=== PATIENT | female | born 1995 | race Two or more races ===

== ENCOUNTER 2024-08-21 14:21 | Outpatient (AMB) | payer MEDICAID, SELFPAY ==
[2024-08-21 14:33] VITALS: BP 123/72; PULSE 78; RESP 18; TEMP 36.2; O2SAT 96
--- NOTE | 2024-08-21 14:33 | OBCLNT_ITS ---
Vital Signs 08/21/24 14:33 Weight 80.796 kg Weight Measurement Method Standing Scale BP 123/72 Blood Pressure Source Automatic Cuff Blood Pressure Location Left Upper Arm Position Sitting Respiration 18 Pulse 78 Pulse Source Monitor Temp 97.2 F Temp Source Oral Pulse Oximetry (%) 96 Oxygen Delivery Method Room Air Allergies/Home Meds Allergies & Medications Allergies ampicillin Allergy (Verified 08/21/24 14:40) Rash Medication Reconciliation ibuprofen 800 mg tablet 800 mg PO Q6H PRN pain #30 tabs 03/26/23 [Rx Confirmed 08/21/24] ciprofloxacin HCl 500 mg tablet (Cipro) 500 mg PO BID #14 tabs 07/21/23 [Rx Confirmed 08/21/24] ibuprofen 800 mg tablet 800 mg PO TID PRN pain #30 tabs 07/21/23 [Rx Confirmed 08/21/24] erythromycin 5 mg/gram (0.5 %) eye ointment 0.5 inch ophthalmic (eye) QID #3.5 grams 01/01/24 [Rx Confirmed 08/21/24] Intake Visit Data Collection New Patient or Established: Established Patient (seen at [facility] within 3 years) Reason for Visit:: ob initial Seen by Clinical Staff ONLY (RN/MA): No Environmental Intern Required: No Do You Feel Safe at Home: Yes Authorities Contacted: N/A PCP or OBGYN visit in last 3 months: Yes Date of Last PCP or OBGYN visit: 08/15/24 Hx Now: Yes Are you currently on any form of Control: No Last menstrual period: 07/10/24 Pain Present Currently: No Pain Scale Used: Rodríguez-Starkey/Numerical Pain scale:: 0 Smoking Status Smoking Status: Never smoker Questionnaires Covid-19 Vaccine Questionnaire Has patient been vacinated for Covid-19 Have you been vacinated for Covid-19: Yes PHQ-9 PHQ-2 Over the last 2 weeks, how often have you been bothered by any of the following problems? 1. Little interest or pleasure in doing things: not at all 2. Feeling down, depressed, or hopeless: not at all Total score: 0 PHQ-9 3. Trouble falling or staying asleep, or sleeping too much: Not at all 4. Feeling tired or having little energy: Not at all 5. Poor appetite or overeating: Not at all 6. Feeling bad about yourself - or that you are a failure or have let yourself or your family down: Not at all 7. Trouble concentrating on things, such as reading the newspaper or watching television: Not at all 8. Moving or speaking so slowly that other people could have noticed? - Or the opposite - being so fidgety or restless that you have been moving around a lot more than usual: not at all 9. Thoughts that you would be better off or of hurting yourself in some way: Not at all Total score: 0 If you checked off any problems, how difficult have these problems made it for you to do your work, take care of things at home, or get along with other people?: not difficult at all Source: Developed by Drs. Alexi Doyle, Layne Regalado, Nikita Proctor and colleagues, with an educational karly from [employer]. Depression screen completed yes Social History Living Situation History Marital Status: Lives With: Family Housing: House Tobacco History Smoking Status: Never smoker Second Hand Smoke Exposure: No Alcohol History Alcohol Intake: Never Alcohol Intake Frequency: holidays/special occasions only Domestic Abuse History Do You Feel Safe at Home: Yes Past Medical History Past Medical History Have you ever been diagnosed with any of the following: Neurological Problems Seizures: No Cardiology Problems Congestive Heart Failure: No Respiratory Problems Chronic Obstructive Pulmonary Disease (COPD): No Genital/Urinary Problems Renal Disease: No Endocrine Problems Diabetes Mellitus Type 1: No Diabetes Mellitus Type 2: No Blood Problems Anemia: Yes Other Problems Hospitalization: Yes Down Syndrome: No Falls: No Blood Transfusions: No Blood Transfusion Reaction: No Anesthesia Reactions: No MRSA: No Chicken Pox: Yes Clostridium Difficile: No Cancer: No History of Present Illness HPI Narrative 28-year-old 6 para 1 for first visit to [facility] OB clinic. Last period July 10, 2024. Sure dates. This gives EDC April 17, 2025. Patient denies social habits. Denies any chronic illnesses. Patient's had 3 C-sections. First was for breech. History of -induced hypertension with the first 2 pregnancies. She is happy and father the baby is involved. Complains of slight nausea. She is taking vitamins. No SAB complaints. OB Initial Visit OB Flowsheet OB Flowsheet Initial Weight: Not Recorded Date -?-?-?-?-?-?-?-?-?-?-?-?- EGA Weight Edema CTX Effacement BP Fundal ht Pres Dilation Effacement Station Visit Note Alb Glu FHR Mov 08/21/24 -?-?-?-?-?-?-?-?-?-?-?-?- 6w 0d 80.796 kg absent absent 123/72 28-year-old previous x 3. Complains of slight nausea. Discussed comfort measures of nausea for her. Will do OB panel, hCG ordered. Schedule sono for viability. Discussed signs symptoms of SAB and ER precautions given. Return in 4 weeks for OB check with OB, uterus feels 6 week size absent Menstrual History Menstrual reliability: definite Flow: normal Monthly: Yes Age at menarche: 14 On control pills at conception: No Date of positive home test: 08/15/24 OB History : 6 Para: 4 Hx # Pregnancies: 0 Hx Total # of Abortions (Spontaneous & Elective): 1 # of Living Children: 4 Delivery History 1st : date: 06/30/13 sex: male Delivery type: vaginal History of depression before or after : No 2nd : Child's name: NA date: 01/20/17 sex: male Delivery type: Delivery complications: BABY WAS BREECH REASON OF History of depression before or after : No 3rd : Child's name: NA date: 05/20/20 sex: male Delivery type: History of depression before or after : No 4th : Child's name: NA date: 12/21/22 sex: male Delivery type: History of depression before or after : No Infection History & Risk Evaluation History of STDs: none HIV risk evaluation: low risk Hepatitis B risk evaluation: low risk Patient or partner has history of Genital Herpes: No Genetic Screening & History Genetic Screening/Teratology Counseling - Includes patient, baby's father, or anyone in either family with: 1. Patient's age 35 years or older as of estimated date of delivery: No 2. Thalassemia (Japanese, Sammarinese, Mediterranean, or Background); MCV less than 80: No 3. Neural Tube Defect (Meningomyelocele, Spina Bifida, or Anencephaly): No 4. Congenital Heart Defect: No 5. Down Syndrome: No 6. Chilango-Sachs (Ashkenazi Congregation, Cajun, Burkinan Portuguese): No 7. Demetrio Disease (Ashkenazi Congregation): No 8. Familial Dysautonomia (Ashkenazi Congregation): No 9. Sickle Cell Disease or Trait (): No 10. Hemophilia or other blood disorders: No 11. Muscular Dystrophy: No 12. Cystic Fibrosis: No 13. Kyleigh's Chorea: No 14. Mental Retardation/Autism: No 15. Other inherited genetic or chromosomal disorder: No 16. Maternal Metabolic Disorder (EG,TYPE 1 Diabetes, PKU): No 17. Patient or baby's father had a child with defects not listed above: No 18. Recurrent loss or a stillbirth: No 19. Medications (including supplements, vitamins, herbs or otc drugs)/illicit/recreational drugs/alcohol since last menstrual period: No 20. Any other: No Infection History 1. Live with someone with TB or exposed to TB: No 2. Rash or viral illness since last menstrual period: No 3. Hepatitis B,C: No Other (see comments) Source: [employer] Review of Systems Review of Systems Systems Reviewed: All systems reviewed, normal except as documented Exam General Limitations: no limitations General Appearance: alert, in no apparent distress, comfortable, cooperative, h ealthy appearing, well developed and well groomed Chest Chest inspection: Present normal inspection and symmetric chest wall rise Resp Respiratory exam: Present normal lung sounds bilaterally Card Cardiovascular exam: Present regular rate, normal rhythm and normal heart sounds Abdominal Abdominal exam: Present soft and normal bowel sounds Psych Psychiatric exam: Present normal affect and normal mood Assessment & Plan Diagnosis / Problem List (1) Encounter for supervision of normal in multigravida in first trimester: Status: Acute Plan continue PNV, OB panel today, HCG today, schedule OB sono 1st trimester to eval viability, sab precaution, comfort measure for nausea. RTC with ob, previous c/s x3 Additional Plan Follow Up: 4 Weeks (obc 4 week) Office Procedures OB Clinic LOC & Office Proc's Nursing/Assessment Patient Status: Established Patient OB Clinic Nursing Assessment: BP Monitoring, Medication Reconciliation, Update PMH in EMR and Vital Signs OB Clinic Coordination of Care: Complex Care/Chronic Disease 5 or more, Consent,records obtained, informed consent, Education Simp Pt/Fam, Lab and Imaging orders and Staff clarify orders Established Patient Charge Established Patient Point Assignment: 125 Established Patient Point Charge: EP Level 4 (120-155)
== END 2024-08-21 15:01 | disposition home or self-care (01) ==
LOC: HODSOBC 14:21
PROVIDERS: PCP Family Medicine; Referring Provider Family Medicine; Supervising Provider Advanced Practice Midwife; Visit Provider Advanced Practice Midwife
DX: O09.291 Supervision of pregnancy with other poor reproductive or obstetric history, first trimester (principal); O34.219 Maternal care for unspecified type scar from previous cesarean delivery; Z3A.01 Less than 8 weeks gestation of pregnancy; Z87.59 Personal history of other complications of pregnancy, childbirth and the puerperium
CPT/HCPCS: 99214; G0463

== ENCOUNTER 2024-08-29 20:26 | Emergency (ER) | payer MEDICAID, SELFPAY ==
[2024-08-29 20:27] VITALS: BMI 34.7
--- NOTE | 2024-08-29 21:42 | XR_ITS ---
Examination: OB Transvaginal ultrasound of the pelvis, complete Technique: Transvaginal sonographic images pelvis performed using monae scale imaging Exam date and time: August 29, 2024 1009 hours INDICATIONS: Onset of pelvic pain today FINDINGS: Uterus 11.5 cm pole is 0.7 cm corresponds to 6 weeks 4 days gestational age Cardiac motion 05/22/1969 p.m. Right ovary 3.9 cm arterial flow 27 mm cyst Left ovary 4.0 cm arterial flow 31 mm cyst IMPRESSION: Viable intrauterine gestation 6 weeks 4 days, no subchorionic hemorrhage.
--- NOTE | 2024-08-29 21:43 | PD.EDRME ---
Rapid Medical Screening Exam RME Arrival date/time: 08/29/24 20:26 This is a 28-year-old female that comes in with complaints of abdominal pain along with back pain. Patient states she is approximately 7 weeks . Patient states she is a 6 para 4 and has had 1 miscarriage. Patient states last menstrual cycle was July 10. Patient denies any vaginal bleeding. I have greeted and performed a focused initial assessment of this patient. Initial appropriate labs ordered at this time. A comprehensive ED assessment and evaluation of the patient and analysis of all test and completion of medical decision making process will be conducted by additional ED provider. Chief Complaint: General Adult/Misc Complain Time Seen by Provider: 08/29/24 20:46
[2024-08-29 21:45] VITALS: BP 132/81; PULSE 81; RESP 18; TEMP 37.6; O2SAT 99
[2024-08-29 22:01] LABS: Collection Type, Urine Voided
[2024-08-29 22:08] LABS: Basophils # (Auto) 0.1 Thou/mm3 (0.0-0.2); Basophils % (Auto) 0 % (0-2.5); Eosinophils # (Auto) 0.2 Thou/mm3 (0.0-0.5); Eosinophils % (Auto) 2 % (0-10); Hematocrit 35.2 % (36.0-46.0); Hemoglobin 11.7 g/dL (12.0-16.0); Immature Granulocytes % (Auto) 0 % (0-0); Immature Granulocytes Auto 0.04 Thou/mm3 (0.00-0.00); Lymphocytes # (Auto) 2.7 Thou/mm3 (1.0-4.8); Lymphocytes % (Auto) 23 % (10-50); Mean Corpuscular HGB Conc 33.2 g/dl (31.0-37.0); Mean Corpuscular Hemoglobin 25.7 pg (25.0-35.0); Mean Corpuscular Volume 77 fL (80-100); Monocytes # (Auto) 0.8 Thou/mm3 (0.0-0.8); Monocytes % (Auto) 7 % (0-12); Neutrophils # (Auto) 7.7 Thou/mm3 (1.8-7.7); Neutrophils % (Auto) 67 % (37-80); Nucleated Red Blood Cell % 0 /100 WBC (0); Platelet Count 212 Thou/mm3 (140-440); RDW Standard Deviation 45.1 fL (36.4-46.3); Red Blood Count 4.55 Miln/mm3 (4.00-5.20); White Blood Count 11.5 Thou/mm3 (3.6-11.0)
[2024-08-29 22:24] LABS: Amorphous Crystals,Urine Present (Absent); Bacteria,Urine 1+; Bilirubin,Urine Negative (Negative); Blood,Urine Negative (Negative); Clarity,Urine Turbid (Clear/Hazy); Color,Urine Yellow (Lt Yel-Yel); Glucose, Urine Negative (Negative); Ketones,Urine Negative (Negative); Leukocyte Esterase,Urine Negative (Negative); Nitrite,Urine Negative (Negative); PH,Urine 6.5 (5.0-7.0); Protein,Urine Negative (Neg - Trace); RBC,Urine 5 /hpf (0-3); Specific Gravity,Urine 1.022 (1.001-1.035); Squamous Epithelial Cell,Urine 10 /hpf (0-5); Urobilinogen,Urine Negative mg/dL (0.0-1.0); WBC,Urine 2 /hpf (0-5)
[2024-08-29 22:26] LABS: Alanine Aminotransferase 14 U/L (10-49); Albumin, Serum 4.2 gm/dL (3.5-5.0); Albumin/Globulin Ratio 1.7 (1.2-2.2); Alkaline Phosphatase 66 U/L (46-116); Anion Gap 7 (7-16); Aspartate Amino Transferase 14 U/L (0-34); BUN/Creatinine Ratio 9 Ratio (12-20); Bilirubin,Total 0.4 mg/dL (0.3-1.2); Blood Urea Nitrogen 6 mg/dL (9-23); Carbon Dioxide 23.9 mMol/L (20.0-31.0); Chloride 107 mMol/L (98-107); Creatinine (Component) 0.7 mg/dL (0.6-1.3); Estimated Creatinine Clearance 114.6 mL/min (>60); Globulin 2.5 gm/dL (2.3-3.5); Glucose 83 mg/dL (74-106); Osmolality,Calculated 272 (275-295); Potassium 3.6 mMol/L (3.4-5.1); Sodium 138 mMol/L (136-145); Total Protein 6.7 gm/dL (5.7-8.2); eGFR > 60 See Note
[2024-08-29 22:27] LABS: Culture Indicated,Urine Yes
[2024-08-29 23:11] LABS: Beta HCG,Quantitative 48662 mIU/mL (<5.0)
--- NOTE | 2024-08-29 23:22 | PD.EDABDPN ---
ED Abdominal Pain RME/HPI General Chief Complaint: General Adult/Misc Complain Stated complaint: ABD PAIN X 1DAY / PREG 7WKS Time seen by provider: 08/29/24 20:46 Arrival date/time: 08/29/24 20:26 This is a 28-year-old female that comes in with complaints of abdominal pain along with back pain. Patient states she is approximately 7 weeks . Patient states she is a 6 para 4 and has had 1 miscarriage. Patient states last menstrual cycle was July 10. Patient denies any vaginal bleeding. RME / HPI RME / HPI narrative: 08/29/24 20:26 This is a 28-year-old female that comes in with complaints of abdominal pain along with back pain. Patient states she is approximately 7 weeks . Patient states she is a 6 para 4 and has had 1 miscarriage. Patient states last menstrual cycle was July 10. Patient denies any vaginal bleeding. I have greeted and performed a focused initial assessment of this patient. Initial appropriate labs ordered at this time. A comprehensive ED assessment and evaluation of the patient and analysis of all test and completion of medical decision making process will be conducted by additional ED provider. Related Data Previous Rx's ?Medication ?Instructions ?Recorded ibuprofen 800 mg tablet 800 mg PO Q6H PRN pain #30 tabs 03/26/23 ciprofloxacin HCl 500 mg tablet 500 mg PO BID #14 tabs 07/21/23 (Cipro) ibuprofen 800 mg tablet 800 mg PO TID PRN pain #30 tabs 07/21/23 erythromycin 5 mg/gram (0.5 %) eye 0.5 inch ophthalmic (eye) QID #3.5 01/01/24 ointment grams Allergies Allergy/AdvReac Type Severity Reaction Status Date / Time ampicillin Allergy Rash Verified 08/21/24 14:40 Course Orders Category Date Time Status US OB transvaginal Stat Exams 08/29/24 21:42 Completed ABO/RH Type - Stat Lab 08/29/24 21:54 Completed Beta HCG,Quantitative Stat Lab 08/29/24 21:54 Completed CBC Stat Lab 08/29/24 21:54 Completed Comprehensive Metabolic Panel Stat Lab 08/29/24 21:54 Completed Urinalysis, C/S if Indicated Stat Lab 08/29/24 21:47 Completed Urine Culture Stat Lab 08/29/24 21:47 Received Acetaminophen Tab [Tylenol ES Tab] Med 08/29/24 23:23 Discontinued 1,000 mg PO X1 ONE Vital Signs Vital signs: Vital Signs Temperature 99.6 F 08/29/24 21:45 Pulse Rate 81 08/29/24 21:45 Respiratory Rate 18 08/29/24 21:45 Blood Pressure 132/81 H 08/29/24 21:45 Pulse Oximetry (%) 99 08/29/24 21:45 Oxygen Delivery Method Room Air 08/29/24 21:45 Abdominal Pain MDM MDM Narrative MDM Narrative:: us transvaginal: FINDINGS: Uterus 11.5 cm pole is 0.7 cm corresponds to 6 weeks 4 days gestational age Cardiac motion 05/22/1969 p.m. Right ovary 3.9 cm arterial flow 27 mm cyst Left ovary 4.0 cm arterial flow 31 mm cyst IMPRESSION: Viable intrauterine gestation 6 weeks 4 days, no subchorionic hemorrhage. White count 11.5 hemoglobin and hematocrit is 11.7 and 35.2. CMP unremarkable beta-hCG is 40,662 LFTs within normal limits urine showed 5 RBCs but otherwise unremarkable.I will send urine for culture. I spoke to patient that we can treat with a dose antibiotics and patient would like to hold off until urine culture comes back. I explained to patient to follow-up with her primary provider in 1 to 2 days. Come back to the emergency room if symptoms change or worsen. Medications / Prescriptions Medication administrations:: Medication Administration History Discontinued Medications Acetaminophen (Acetaminophen 500 Mg Tablet) 1,000 mg PO X1 ONE Stop: 08/29/24 23:24 Discharge Plan Plan Patient Disposition: HOME (Self Care) Patient condition on transfer: Stable Prescriptions/Referrals Prescriptions/Med Rec: No Action ibuprofen 800 mg tablet 800 mg PO Q6H PRN (Reason: pain) Qty: 30 0RF ciprofloxacin HCl [Cipro] 500 mg tablet 500 mg PO BID Qty: 14 0RF ibuprofen 800 mg tablet 800 mg PO TID PRN (Reason: pain) Qty: 30 0RF erythromycin 5 mg/gram (0.5 %) ointment 0.5 inch ophthalmic (eye) QID Qty: 3.5 0RF Referrals: No Primary/Family,Physician [Primary Care Provider] - In 1 week Problem List Clinical Impression: Back pain, 6 weeks gestation of , Miscarriage, threatened, early Patient/Caregiver Discharge Instructions Discharge Activity: activity as tolerated Education Materials: Back Pain During Additional Instructions: Lew un josé luis con starr medico de cabecera en las proximas 24-48 horas. Regrese a la eulogio de emergencias si hay evidencia de que los signos o sintomas empeoran. Print Language: Faroese Stand Alone Forms: Fany Award Info., Patient Portal Info Letter PA/AIRPORT BAGGAGE SCREENER Supervising Physician PA/AIRPORT BAGGAGE SCREENER Supervising Physician: joya
[2024-08-29] MEDS: ACETAMINOPHEN 500 MG TABLET 1000 MG PO (23:38)
== END 2024-08-30 | disposition home or self-care (01) ==
PROVIDERS: Nurse Practitioner Family; Emergency Provider Emergency Medicine
DX: O20.0 Threatened abortion (principal); Z3A.01 Less than 8 weeks gestation of pregnancy; M54.9 Dorsalgia, unspecified; O26.891 Other specified pregnancy related conditions, first trimester
CPT/HCPCS: 36415; 76817; 80053; 81001; 84702; 85025; 86900; 86901; 87086; 99284; A9270

== ENCOUNTER 2024-09-05 08:40 | Outpatient (AMB) | payer MEDICAID, SELFPAY ==
--- NOTE | 2024-09-05 08:52 | GYNCLNT_ITS ---
Vital Signs 09/05/24 08:53 Height 1.52 m Height Method Stated Weight 81.76 kg Weight Measurement Method Standing Scale BMI 35.4 BP 126/81 Blood Pressure Source Automatic Cuff Blood Pressure Location Left Upper Arm Position Sitting Respiration 12 Pulse 63 Pulse Source Monitor Temp 98.4 F Temp Source Oral Pulse Oximetry (%) 98 Oxygen Delivery Method Room Air Allergies/Home Meds Allergies & Medications Allergies ampicillin Allergy (Verified 09/05/24 08:52) Rash Medication Reconciliation ibuprofen 800 mg tablet 800 mg PO Q6H PRN pain #30 tabs 03/26/23 [Rx Confirmed 09/05/24] ciprofloxacin HCl 500 mg tablet (Cipro) 500 mg PO BID #14 tabs 07/21/23 [Rx Confirmed 09/05/24] ibuprofen 800 mg tablet 800 mg PO TID PRN pain #30 tabs 07/21/23 [Rx Confirmed 09/05/24] erythromycin 5 mg/gram (0.5 %) eye ointment 0.5 inch ophthalmic (eye) QID #3.5 grams 01/01/24 [Rx Confirmed 09/05/24] ondansetron 4 mg disintegrating tablet 4 mg PO Q6H PRN nausea and vomiting 30 days #120 tabs 09/05/24 [Rx] vitamin with calcium no.72-iron 27 mg-folic acid 1 mg tablet ( Vitamins Plus Low Iron) 1 tab PO QDAY 90 days #90 tabs 09/05/24 [Rx] Intake Visit Data Collection New Patient or Established: Established Patient (seen at [facility] within 3 years) Reason for Visit:: visit, emergency room follow-up for vaginal bleeding and early on August 29 Seen by Clinical Staff ONLY (RN/MA): No Material Preparation Worker Required: Yes Material Preparation Worker's name/title: Hafsa Martinez Do You Feel Safe at Home: Yes Authorities Contacted: N/A PCP or OBGYN visit in last 3 months: Yes Hx Now: Yes Are you currently on any form of Control: No Pain Present Currently: No Pain Scale Used: Rodríguez-Starkey/Numerical Pain scale:: 0 Smoking Status Smoking Status: Never smoker Questionnaires Covid-19 Vaccine Questionnaire Has patient been vacinated for Covid-19 Have you been vacinated for Covid-19: No PHQ-9 PHQ-2 Over the last 2 weeks, how often have you been bothered by any of the following problems? 1. Little interest or pleasure in doing things: not at all 2. Feeling down, depressed, or hopeless: not at all Total score: 0 PHQ-9 3. Trouble falling or staying asleep, or sleeping too much: Not at all 4. Feeling tired or having little energy: Not at all 5. Poor appetite or overeating: Not at all 6. Feeling bad about yourself - or that you are a failure or have let yourself or your family down: Not at all 7. Trouble concentrating on things, such as reading the newspaper or watching television: Not at all 8. Moving or speaking so slowly that other people could have noticed? - Or the opposite - being so fidgety or restless that you have been moving around a lot more than usual: not at all 9. Thoughts that you would be better off or of hurting yourself in some way: Not at all Total score: 0 Source: Developed by Drs. Alexi Doyle, Layne Regalado, Nikita Proctor and colleagues, with an educational karly from [employer]. Depression screen completed yes Social History Living Situation History Lives With: Family Housing: House Tobacco History Smoking Status: Never smoker Second Hand Smoke Exposure: No Alcohol History Alcohol Intake: Never Alcohol Intake Frequency: holidays/special occasions only Domestic Abuse History Do You Feel Safe at Home: Yes Past Medical History Past Medical History Have you ever been diagnosed with any of the following: Neurological Problems Seizures: No Cardiology Problems Congestive Heart Failure: No Respiratory Problems Chronic Obstructive Pulmonary Disease (COPD): No Genital/Urinary Problems Renal Disease: No Endocrine Problems Diabetes Mellitus Type 1: No Diabetes Mellitus Type 2: No Blood Problems Anemia: Yes Other Problems Hospitalization: Yes Down Syndrome: No Falls: No Blood Transfusions: No Blood Transfusion Reaction: No Anesthesia Reactions: No MRSA: No Chicken Pox: Yes Clostridium Difficile: No Cancer: No History of Present Illness HPI Yadiel Lena Ridley, a patient, presents for a visit and emergency room follow-up. She was seen in the ER on August 29, 2024, for vaginal bleeding and early concerns. The patient reports her last menstrual period was in July. Based on the ultrasound performed in the ER, she is currently 7 weeks and 4 days with an estimated due date of April 20, 2025. During the ER visit, a transvaginal ultrasound showed a pole measuring 0.7 centimeters, corresponding to 6 weeks and 4 days gestation. heart tones were noted at 127 beats per minute, and no other abnormalities were observed. Currently, the patient reports experiencing some cramping in her stomach. She mentions going up and down stairs 2-3 times a day, which may be contributing to the discomfort. The patient also reports experiencing nausea, for which she requests medication. Obstetric History - GPAL: A0 L0 - Current : - Gestational age: 7 weeks and 4 days (based on ultrasound) - Estimated due date: April 20, 2025 - Last menstrual period: July 2024 Medical History - Emergency room visit on August 29, 2024 for vaginal bleeding and early Medications and Supplements - vitamins Review of Systems Gastrointestinal: Positive for mild cramping. Exam General General Appearance: alert, in no apparent distress and healthy appearing Head Head exam: atraumatic Neck Neck exam: Present normal inspection and trachea midline Chest Chest inspection: Present normal inspection and symmetric chest wall rise External exam: Present normal external exam; Absent tenderness Neuro Neurological exam: Present oriented X3 Psych Psychiatric exam: Present normal affect and normal mood Results Objective Imaging: - Date: 08/29/2024 - Transvaginal ultrasound: - pole: 0.7 cm (corresponding to 6 weeks and 4 days gestation) - heart rate: 127 beats per minute - No other abnormalities noted Assessment & Plan Diagnosis / Problem List (1) Miscarriage, threatened, early : Status: Inactive (2) Supervision of high risk , unspecified, first trimester: Status: Acute (3) Hyperemesis gravidarum: Status: Acute Plan Lena Ridley presents for visit and emergency room follow-up at 7 weeks and 4 days gestation based on ultrasound dating. Intrauterine Assessment: Patient is at 7 weeks and 4 days gestation today based on transvaginal ultrasound performed on August 29, 2024, which showed a pole measuring 0.7 cm corresponding to 6 weeks and 4 days at that time. heart tones were noted at 127 beats per minute. Estimated due date is April 20, 2025. Patient reports last menstrual period in July, with a calculated date of July 14, 2024. Patient presented to the ER on August 29 with vaginal bleeding, but no current bleeding or significant cramping reported. Mild abdominal discomfort noted with frequent up and down movements. Plan: - Perform initial labs including genetic testing - Schedule follow-up appointment in 3-4 weeks - Perform ultrasound at next visit - Prescribe vitamins - Prescribe anti-nausea medication - Advise patient to limit up and down movements to 2-3 times per day - Anticipate resolution of cramping in approximately 2-3 weeks Office Procedures OB Clinic LOC & Office Proc's Nursing/Assessment Patient Status: Established Patient OB Clinic Nursing Assessment: Medication Reconciliation, Update PMH in EMR and Vital Signs OB Clinic Coordination of Care: Complex Care and Chronic Disease 1-5, Consent,records obtained, informed consent, Education Simp Pt/Fam, Results/Orders obtained and Staff clarify orders Established Patient Charge Established Patient Point Assignment: 90 Established Patient Point Charge: EP Level 3 (80-115)
[2024-09-05 08:53] VITALS: BP 126/81; PULSE 63; RESP 12; TEMP 36.9; O2SAT 98; BMI 35.4
== END 2024-09-05 09:13 | disposition home or self-care (01) ==
LOC: HODSOBC 08:40
PROVIDERS: PCP Obstetrics & Gynecology; Referring Provider Obstetrics & Gynecology; Supervising Provider Obstetrics & Gynecology; Visit Provider Obstetrics & Gynecology
DX: O09.891 Supervision of other high risk pregnancies, first trimester (principal); O20.0 Threatened abortion; Z3A.01 Less than 8 weeks gestation of pregnancy; O21.0 Mild hyperemesis gravidarum
CPT/HCPCS: 99213; G0463

== ENCOUNTER 2024-10-04 15:18 | Outpatient (AMB) | payer MEDICAID, SELFPAY ==
[2024-10-04 16:04] VITALS: BP 132/85; PULSE 80; RESP 18; TEMP 36.2; O2SAT 98; BMI 36.1
--- NOTE | 2024-10-04 16:04 | OBCLNT_ITS ---
Vital Signs 10/04/24 16:04 Height 1.52 m Height Method Stated Weight 83.461 kg Weight Measurement Method Standing Scale BMI 36.1 BP 132/85 H Blood Pressure Source Automatic Cuff Blood Pressure Location Left Upper Arm Position Sitting Respiration 18 Pulse 80 Pulse Source Monitor Temp 97.2 F Temp Source Oral Pulse Oximetry (%) 98 Oxygen Delivery Method Room Air Allergies/Home Meds Allergies & Medications Allergies ampicillin Allergy (Verified 10/04/24 16:05) Rash Medication Reconciliation ibuprofen 800 mg tablet 800 mg PO Q6H PRN pain #30 tabs 03/26/23 [Rx Confirmed 10/04/24] ciprofloxacin HCl 500 mg tablet (Cipro) 500 mg PO BID #14 tabs 07/21/23 [Rx Confirmed 10/04/24] ibuprofen 800 mg tablet 800 mg PO TID PRN pain #30 tabs 07/21/23 [Rx Confirmed 10/04/24] erythromycin 5 mg/gram (0.5 %) eye ointment 0.5 inch ophthalmic (eye) QID #3.5 grams 01/01/24 [Rx Confirmed 10/04/24] vitamin with calcium no.72-iron 27 mg-folic acid 1 mg tablet ( Vitamins Plus Low Iron) 1 tab PO QDAY 90 days #90 tabs 09/05/24 [Rx Confirmed 10/04/24] vitamin with calcium no.72-iron 27 mg-folic acid 1 mg tablet ( Vitamins Plus Low Iron) 1 tab PO QDAY 90 days #90 tabs 10/04/24 [Rx] Intake Visit Data Collection New Patient or Established: Established Patient (seen at [facility] within 3 years) Reason for Visit:: OBC Seen by Clinical Staff ONLY (RN/MA): No Bakery Decorator Required: Yes Bakery Decorator's name/title: ESTRELLA Newton MA Do You Feel Safe at Home: Yes Authorities Contacted: N/A PCP or OBGYN visit in last 3 months: Yes Date of Last PCP or OBGYN visit: 09/05/24 Hx Now: Yes Are you currently on any form of Control: No Pain Present Currently: No Pain Scale Used: Rodríguez-Starkey/Numerical Pain scale:: 0 Smoking Status Smoking Status: Never smoker Questionnaires Covid-19 Vaccine Questionnaire Has patient been vacinated for Covid-19 Have you been vacinated for Covid-19: Yes PHQ-9 PHQ-2 Over the last 2 weeks, how often have you been bothered by any of the following problems? 1. Little interest or pleasure in doing things: not at all 2. Feeling down, depressed, or hopeless: not at all Total score: 0 PHQ-9 3. Trouble falling or staying asleep, or sleeping too much: Not at all 4. Feeling tired or having little energy: Not at all 5. Poor appetite or overeating: Not at all 6. Feeling bad about yourself - or that you are a failure or have let yourself or your family down: Not at all 7. Trouble concentrating on things, such as reading the newspaper or watching television: Not at all 8. Moving or speaking so slowly that other people could have noticed? - Or the opposite - being so fidgety or restless that you have been moving around a lot more than usual: not at all 9. Thoughts that you would be better off or of hurting yourself in some way: Not at all Total score: 0 If you checked off any problems, how difficult have these problems made it for you to do your work, take care of things at home, or get along with other people?: not difficult at all Source: Developed by Drs. Alexi Doyle, Layne Regalado, Nikita Proctor and colleagues, with an educational karly from [employer]. 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 Complains of slight nausea. Discussed comfort measures of nausea for her. Will do OB panel, hCG ordered. Schedule sono for viability. Discussed signs symptoms of SAB and ER precautions given. Return in 4 weeks for OB check with OB, uterus feels 6 week size ONOFRE Calculator Estimated Delivery Date Method Current WG Current Estimate 04/16/25 LMP (Certain) 13w 0d Office Procedures OB Clinic LOC & Office Proc's Nursing/Assessment Patient Status: Established Patient OB Clinic Nursing Assessment: Medication Reconciliation, Update PMH in EMR and Vital Signs OB Clinic Coordination of Care: Education Complex Pt/Fam, Consent,records obtained, informed consent, Lab and Imaging orders and Staff clarify orders Special Needs: Heart tones Established Patient Charge Established Patient Point Assignment: 110 Established Patient Point Charge: EP Level 3 (80-115) Assessment & Plan Diagnosis / Problem List (1) Hyperemesis gravidarum: Status: Acute (2) Supervision of high risk , unspecified, first trimester: Status: Acute
== END 2024-10-04 16:20 | disposition home or self-care (01) ==
LOC: HODSOBC 15:18
PROVIDERS: PCP Obstetrics & Gynecology; Referring Provider Obstetrics & Gynecology; Supervising Provider Obstetrics & Gynecology; Visit Provider Obstetrics & Gynecology
DX: O09.891 Supervision of other high risk pregnancies, first trimester (principal); O21.0 Mild hyperemesis gravidarum; Z3A.13 13 weeks gestation of pregnancy; Z88.0 Allergy status to penicillin
CPT/HCPCS: 99213; G0463

== ENCOUNTER 2024-10-10 17:23 | Emergency (ER) | payer MEDICAID, SELFPAY ==
[2024-10-10 17:32] VITALS: BP 130/82; PULSE 97; RESP 18; TEMP 37.4; O2SAT 99; BMI 33.8
--- NOTE | 2024-10-10 17:46 | XR_ITS ---
Examination: Complete OB ultrasound, less than 14 weeks, transabdominal Date and time of exam: October 10, 2024 1930 hours INDICATIONS: Vaginal bleeding pelvic cramping today Technique: Obstetrical ultrasound images less than 14 weeks performed via transabdominal imaging Findings: A normal shaped single intrauterine gestation is present in the uterus. pole 6.8 cm corresponds to 13 weeks 0 day gestational age Cardiac motion 158 BPM Possible subchorionic hemorrhage in the lower uterine segment 16 x 12 x 17 mm Ultrasonographic survey of visible and placental structures unremarkable. Amniotic fluid volume appears appropriate for this estimated gestational age. Right ovary 5.0 cm arterial flow 32 mm cyst Left ovary 4.1 cm arterial flow 22 mm cysts IMPRESSION: Viable intrauterine gestation 13 weeks 0 days Recommend short-term follow-up, given the probable subchorionic hemorrhage.
--- NOTE | 2024-10-10 17:46 | PD.EDRME ---
Rapid Medical Screening Exam RME Arrival date/time: 10/10/24 17:23 28-year-old female with no known medical history presents to the emergency room with a chief complaint of vaginal spotting and abdominal cramping x 1 day. Patient is currently 13 weeks . Patient is a G6, P4. I have greeted and performed a focused initial assessment of this patient. A comprehensive ED assessment and evaluation of the patient, analysis of all test results, and completion of the medical decision making process will be conducted by additional ED providers. Chief Complaint: Urogenital-Female Time Seen by Provider: 10/10/24 17:28 Vital signs: Vital Signs Temperature 99.3 F 10/10/24 17:32 Pulse Rate 97 10/10/24 17:32 Respiratory Rate 18 10/10/24 17:32 Blood Pressure 130/82 10/10/24 17:32 Pulse Oximetry (%) 99 10/10/24 17:32 Oxygen Delivery Method Room Air 10/10/24 17:32 Vital signs reviewed by provider: Yes
[2024-10-10 18:53] LABS: Basophils # (Auto) 0.1 Thou/mm3 (0.0-0.2); Basophils % (Auto) 1 % (0-2.5); Eosinophils # (Auto) 0.1 Thou/mm3 (0.0-0.5); Eosinophils % (Auto) 1 % (0-10); Hemoglobin 11.9 g/dL (12.0-16.0); Immature Granulocytes % (Auto) 0 % (0-0); Immature Granulocytes Auto 0.04 Thou/mm3 (0.00-0.00); Lymphocytes # (Auto) 1.8 Thou/mm3 (1.0-4.8); Lymphocytes % (Auto) 20 % (10-50); Mean Corpuscular Hemoglobin 27.2 pg (25.0-35.0); Mean Corpuscular Volume 80 fL (80-100); Monocytes # (Auto) 0.5 Thou/mm3 (0.0-0.8); Monocytes % (Auto) 5 % (0-12); Neutrophils # (Auto) 6.7 Thou/mm3 (1.8-7.7); Neutrophils % (Auto) 73 % (37-80); Nucleated Red Blood Cell % 0 /100 WBC (0); Platelet Count 192 Thou/mm3 (140-440); RDW Standard Deviation 46.4 fL (36.4-46.3); Red Blood Count 4.37 Miln/mm3 (4.00-5.20); White Blood Count 9.2 Thou/mm3 (3.6-11.0)
[2024-10-10 20:08] LABS: Albumin, Serum 3.9 gm/dL (3.5-5.0); Albumin/Globulin Ratio 1.9 (1.2-2.2); Alkaline Phosphatase 49 U/L (46-116); Anion Gap 12 (7-16); BUN/Creatinine Ratio 9 Ratio (12-20); Bilirubin,Total 0.3 mg/dL (0.3-1.2); Blood Urea Nitrogen 6 mg/dL (9-23); Calcium 8.6 mg/dL (8.3-10.6); Calcium (Corrected) 8.7 mg/dL (8.5-10.1); Chloride 107 mMol/L (98-107); Creatinine (Component) 0.7 mg/dL (0.6-1.3); Estimated Creatinine Clearance 122.3 mL/min (>60); Globulin 2.1 gm/dL (2.3-3.5); Glucose 134 mg/dL (74-106); Osmolality,Calculated 280 (275-295); Potassium 3.3 mMol/L (3.4-5.1); Sodium 141 mMol/L (136-145); eGFR > 60 See Note
[2024-10-10 20:09] LABS: Collection Type, Urine Clean Catch
[2024-10-10 20:27] LABS: Amorphous Crystals,Urine Present (Absent); Bilirubin,Urine Negative (Negative); Blood,Urine Negative (Negative); Color,Urine Yellow (Lt Yel-Yel); Glucose, Urine 1+ (Negative); Ketones,Urine Negative (Negative); Leukocyte Esterase,Urine Negative (Negative); Nitrite,Urine Negative (Negative); Protein,Urine Negative (Neg - Trace); RBC,Urine 23 /hpf (0-3); Squamous Epithelial Cell,Urine 9 /hpf (0-5); Urobilinogen,Urine Negative mg/dL (0.0-1.0); WBC,Urine 1 /hpf (0-5)
[2024-10-10 20:59] LABS: Clarity,Urine Turbid (Clear/Hazy)
[2024-10-10 21:07] LABS: Beta HCG,Quantitative 54451 mIU/mL (<5.0)
[2024-10-10 21:23] LABS: Alanine Aminotransferase 10 U/L (10-49)
--- NOTE | 2024-10-10 21:36 | EDNOTE_ITS ---
<Statement entered by Estrellita Osuna MD - 10/11/24 18:31> As co-signing physician, I was present and available for consult prn. I concur with the plan and care as documented by the midlevel provider. ED Female Urogenital RME/HPI General Chief complaint: Urogenital-Female Stated complaint: ABD PAIN + PREG, SPOTTING Time Seen by Provider: 10/10/24 17:28 Arrival date/time: 10/10/24 17:23 Limitations: no limitations RME / HPI RME / HPI Narrative: 10/10/24 17:23 28-year-old female with no known medical history presents to the emergency room with a chief complaint of vaginal spotting and abdominal cramping x 1 day. Patient is currently 13 weeks . Patient is a G6, P4. I have greeted and performed a focused initial assessment of this patient. A comprehensive ED assessment and evaluation of the patient, analysis of all test results, and completion of the medical decision making process will be conducted by additional ED providers. 28-year-old female with no known medical history presents to the emergency room with a chief complaint of vaginal spotting and abdominal cramping x 1 day. Patient is currently 13 weeks . Patient is a G6, P4 Sab 1. Patient states has not had sex since she found that she is scared. Does not have her next OB appointment until 1 month from now. States she is having burning with urination but no fever. No diarrhea no vomiting. Related Data Previous Rx's ?Medication ?Instructions ?Recorded ibuprofen 800 mg tablet 800 mg PO Q6H PRN pain #30 t abs 03/26/23 ciprofloxacin HCl 500 mg tablet 500 mg PO BID #14 tabs 07/21/23 (Cipro) ibuprofen 800 mg tablet 800 mg PO TID PRN pain #30 t abs 07/21/23 erythromycin 5 mg/gram (0.5 %) eye 0.5 inch ophthalmic (eye) QID #3.5 01/01/24 ointment grams vitamin with calcium 1 tab PO QDAY 90 days #9 0 tabs 09/05/24 no.72-iron 27 mg-folic acid 1 mg tablet ( Vitamins Plus Low Iron) vitamin with calcium 1 tab PO QDAY 90 days #9 0 tabs 10/04/24 no.72-iron 27 mg-folic acid 1 mg tablet ( Vitamins Plus Low Iron) nitrofurantoin macrocrystal 100 mg 100 mg PO Q12H #14 caps 10/10/24 capsule Allergies Allergy/AdvReac Type Severity Reaction Status Date / Time ampicillin Allergy Severe Rash Verified 10/10/24 17:27 Review of Systems Review of Systems Systems Reviewed: All systems reviewed, normal except as documented Constitutional Constitutional: Denies fever(s) Gastrointestinal Gastrointestinal: Reports abdominal pain Genitourinary Genitourinary: Reports as per HPI ED Exam General Limitations: Present no limitations General appearance: Present alert and in no apparent distress Eye Eye exam: Present normal appearance, PERRL and EOMI Respiratory Respiratory exam: Present normal lung sounds bilaterally Cardiovascular Cardiovascular exam: Present regular rate, normal rhythm and normal heart sounds Abdominal Exam Abdominal exam: Present soft and normal bowel sounds Abdominal tenderness: Present suprapubic External exam: Present other (Declined pelvic exam) Extremities Exam Extremities exam: Present normal inspection and full ROM Back Exam Back exam: Present normal inspection and full ROM Psychiatric Psychiatric exam: Present normal affect and normal mood Skin Skin exam: Present warm, dry, intact and normal color Course Quality Measures none Orders Category Date Time Status US OB <= 14 weeks fetus Stat Exams 10/10/24 17:46 Completed ABO/RH Type Stat Lab 10/10/24 18:00 Completed Beta HCG,Quantitative Stat Lab 10/10/24 18:00 Completed CBC Stat Lab 10/10/24 18:00 Completed CMP [Comprehensive Metabolic Panel] Stat Lab 10/10/24 18:00 Completed UA [Urinalysis] Stat Lab 10/10/24 19:47 Completed Potassium Chloride [K-Dur] Med 10/10/24 21:31 Discontinued 20 meq PO X1 ONE cefTRIAXone [Rocephin] 1,000 mg Med 10/10/24 21:41 Discontinued Lidocaine 1% 20 ml [Xylocaine 1% 20 ML] 2.1 ml IM X1 Vital Signs Vital signs: Vital Signs Temperature 99.3 F 10/10/24 17:32 Pulse Rate 97 10/10/24 17:32 Respiratory Rate 18 10/10/24 17:32 Blood Pressure 130/82 10/10/24 17:32 Pulse Oximetry (%) 99 10/10/24 17:32 Oxygen Delivery Method Room Air 10/10/24 17:32 Urogenital - Female MDM Narrative MDM Narrative:: 28-year-old female with pelvic pain ultrasound was reassuring no white count but there is hypokalemia here is suggestive of a UTI. IM antibiotics given here along with potassium. Prescription for home advised follow-up with PCP return to ER symptoms worsen Patient data External records reviewed:: [facility] previous records Clinical information provided by:: patient Social determinants that could affect healthcare access:: other (specify) Patient has the following chronic illnesses:: How is presenting disease/condition affected by chronic disease/condition?: caused by Evaluation data The following diagnostics were reviewed and interpreted by me:: lab results and radiology exam(s) Lab and/or radiology exams considered but not ordered:: All imaging considered was ordered Interpretation Summary: no white count but there is hypokalemia here is suggestive of a UTI. Medications / Prescriptions Medications or Prescriptions considered but not ordered:: Considered amoxicillin at home but patient is allergic Medication administrations:: Medication Administration History Discontinued Medications Ceftriaxone Sodium 1,000 mg/ (Lidocaine HCl 2.1 ml) 0 mg IM X1 ONE Stop: 10/10/24 21:42 Last Admin: 10/10/24 21:58 Dose: 2.1 mg Documented By: Potassium Chloride (Potassium Chloride 20 Meq Tabcr) 20 meq PO X1 ONE Stop: 10/10/24 21:32 Last Admin: 10/10/24 21:57 Dose: 20 meq Documented By: IM antibiotics given, potassium and sent home with prescription Consultations Consultation(s) initiated? (list below): No Diagnosis Urogenital Female Differential Diagnosis: urinary tract infection and other ( demise, spontaneous ) Most likely diagnosis given after review of the tests above:: UTI in Hypokalemia Admission Indicated Admission indicated?: not indicated Admission Request Was there a request for admission?: No Disposition Plan Disposition Plan: Discharge Discharge Attestation Discharge Attestation: The patient and all family members were given an opportunity to ask questions and understood the discharge instructions. Discharge instructions specifically effects, indications for sooner follow up or return to the emergency department, and the expected course of current diagnosis. Patient condition: Stable Discharge Plan Plan Patient Disposition: HOME (Self Care) Discharge Disposition comment: Follow-up with PCP in 2 to 3 days Prescriptions/Referrals Prescriptions/Med Rec: New nitrofurantoin macrocrystal 100 mg capsule 100 mg PO Q12H Qty: 14 0RF Rx Instructions: must administer with a meal/food No Action Vitamin Plus Low Iron 27 mg iron- 1 mg tablet 1 tab PO QDAY 90 Days Qty: 90 6RF Vitamin Plus Low Iron 27 mg iron- 1 mg tablet 1 tab PO QDAY 90 Days Qty: 90 6RF ibuprofen 800 mg tablet 800 mg PO Q6H PRN (Reason: pain) Qty: 30 0RF ciprofloxacin HCl [Cipro] 500 mg tablet 500 mg PO BID Qty: 14 0RF ibuprofen 800 mg tablet 800 mg PO TID PRN (Reason: pain) Qty: 30 0RF erythromycin 5 mg/gram (0.5 %) ointment 0.5 inch ophthalmic (eye) QID Qty: 3.5 0RF Referrals: No Primary/Family,Physician [Primary Care Provider] - In 1 week Problem List Clinical Impression: Pelvic pain affecting , Urinary tract infection, Acute hypokalemia Patient/Caregiver Discharge Instructions Education Materials: Anatomy of the Female Urinary Tract, ED Hypokalemia, ED CYSTITIS Female Adult Print Language: Bangladeshi Stand Alone Forms: Fany Award Info., Work/School Release, Patient Portal Info Letter PA/CHERRY GROWER Supervising Physician PA/CHERRY GROWER Supervising Physician: Dr. Osuna
[2024-10-10] MEDS: POTASSIUM CHLORIDE 20 mEq TABCR PO (21:57)
[2024-10-10] MEDS: cefTRIAXone 1,000 MG, LIDOCAINE 1% 20 ML 2.1 ML IM (21:58)
== END 2024-10-10 22:07 | disposition home or self-care (01) ==
PROVIDERS: Nurse Practitioner Family; Emergency Provider Family Medicine
DX: O23.41 Unspecified infection of urinary tract in pregnancy, first trimester (principal); N39.0 Urinary tract infection, site not specified; O99.281 Endocrine, nutritional and metabolic diseases complicating pregnancy, first trimester; E87.6 Hypokalemia; O99.891 Other specified diseases and conditions complicating pregnancy; R10.2 Pelvic and perineal pain; Z3A.13 13 weeks gestation of pregnancy
CPT/HCPCS: 36415; 76801; 80053; 81001; 84702; 85025; 86900; 86901; 96372; 99284; J0696; J3490; A9270

== ENCOUNTER 2024-11-20 14:00 | Outpatient (AMB) | payer MEDICAID, SELFPAY ==
[2024-11-20 14:25] VITALS: BP 115/77; PULSE 79; RESP 17; TEMP 36.9; O2SAT 97; BMI 34.6
--- NOTE | 2024-11-20 14:25 | AMB.OBVISIT ---
Vital Signs 11/20/24 14:25 Height 1.57 m Height Method Stated Weight 85.332 kg Weight Measurement Method Standing Scale BMI 34.6 BP 115/77 Blood Pressure Source Automatic Cuff Blood Pressure Location Right Upper Arm Position Sitting Respiration 17 Pulse 79 Pulse Source Monitor Temp 98.4 F Temp Source Temporal Artery Scan Pulse Oximetry (%) 97 Oxygen Delivery Method Room Air Allergies/Home Meds Allergies & Medications Allergies ampicillin Allergy (Severe, Verified 11/20/24 14:26) Rash Medication Reconciliation vitamin with calcium no.72-iron 27 mg-folic acid 1 mg tablet ( Vitamins Plus Low Iron) 1 tab PO QDAY 90 days #90 tabs 10/04/24 [Rx] Intake Visit Data Collection New Patient or Established: Established Patient (seen at [facility] within 3 years) Reason for Visit:: OBC 18W Seen by Clinical Staff ONLY (RN/MA): No 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 1. Little interest or pleasure in doing things: not at all 2. Feeling down, depressed, or hopeless: not at all Total score: 0 PHQ-9 3. Trouble falling or staying asleep, or sleeping too much: Not at all 4. Feeling tired or having little energy: Not at all 5. Poor appetite or overeating: Not at all 6. Feeling bad about yourself - or that you are a failure or have let yourself or your family down: Not at all 7. Trouble concentrating on things, such as reading the newspaper or watching television: Not at all 8. Moving or speaking so slowly that other people could have noticed? - Or the opposite - being so fidgety or restless that you have been moving around a lot more than usual: not at all 9. Thoughts that you would be better off or of hurting yourself in some way: Not at all Total score: 0 If you checked off any problems, how difficult have these problems made it for you to do your work, take care of things at home, or get along with other people?: not difficult at all Source: Developed by Drs. Alexi Doyle, Layen Regalado, Nikita Proctor and colleagues, with an educational karly from [employer]. 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 Complains of slight nausea. Discussed comfort measures of nausea for her. Will do OB panel, hCG ordered. Schedule sono for viability. Discussed signs symptoms of SAB and ER precautions given. Return in 4 weeks for OB check with OB, uterus feels 6 week size 11/20/24 <del>?</del> 19w 0d 85.332 kg 115/77 absent unknown 19 156 active no ob complaints, denies leaking,bleeding, uc. +FM, no ob complaints schedule MFM anatomy scan, AFP today. discuss ptl precaution, increase fluid, continue PNV,rtc 4 week ONOFRE Calculator Estimated Delivery Date Method Current WG Current Estimate 04/16/25 LMP (Certain) 19w 0d Other Estimates 04/18/25 Ultrasound #1 18w 5d Office Procedures OB Clinic LOC & Office Proc's Nursing/Assessment Patient Status: Established Patient OB Clinic Nursing Assessment: Medication Reconciliation, Update PMH in EMR and Vital Signs OB Clinic Coordination of Care: Complex Care and Chronic Disease 1-5, Consent,records obtained, informed consent, Education Simp Pt/Fam and Staff clarify orders Special Needs: Heart tones Established Patient Charge Established Patient Point Assignment: 115 Established Patient Point Charge: EP Level 3 (80-115) Assessment & Plan Diagnosis / Problem List (1) Encounter for supervision of high risk in second trimester, antepartum: Status: Acute Plan Schedule anatomy scan with maternal- medicine. Continue prenatals. Discussed labor precautions. Increase fluids. Rest. aFP today. Return in 4 weeks OB check Additional Plan Follow Up: 4 Weeks (obc)
== END 2024-11-20 15:21 | disposition home or self-care (01) ==
LOC: HODSOBC 14:00
PROVIDERS: Supervising Provider Advanced Practice Midwife; Visit Provider Advanced Practice Midwife
DX: O09.92 Supervision of high risk pregnancy, unspecified, second trimester (principal); Z3A.19 19 weeks gestation of pregnancy; Z88.0 Allergy status to penicillin
CPT/HCPCS: 99213; G0463

== ENCOUNTER 2024-12-06 19:04 | Emergency (ER) | payer MEDICAID, SELFPAY ==
[2024-12-06 19:22] VITALS: BP 127/79; PULSE 86; RESP 20; TEMP 37.1; O2SAT 99; BMI 34.9
--- NOTE | 2024-12-06 19:41 | PD.EDEAR ---
ED Ear RME/HPI General Chief complaint: Ear Stated complaint: Ear pain and a VALENZUELA Time Seen by Provider: 12/06/24 19:11 Arrival date/time: 12/06/24 19:04 RME / HPI RME / HPI Narrative: 28-year-old female patient, about 20 weeks , came in for evaluation regarding bilateral earache and headache. Onset of symptoms for the last few days, severity of symptoms are moderate. Patient denies any fever. Denies any cough denies any sore throat denies any other complaints no medications taken prior to arrival. Related Data Previous Rx's ?Medication ?Instructions ?Recorded vitamins with calcium 1 tab PO QDAY 90 days #90 tabs 10/04/24 no.72-iron 27 mg-folic acid 1 mg tablet ( Vitamins Plus Low Iron) cefuroxime axetil 500 mg tablet 500 mg PO BID #14 tabs 12/06/24 Allergies Allergy/AdvReac Type Severity Reaction Status Date / Time ampicillin Allergy Severe Rash Verified 12/06/24 19:11 Review of Systems Review of Systems Narrative Review of Systems: Review of system reviewed and within normal limits except mentioned in HPI ED Exam Narrative Physical exam: VITAL SIGNS: Reviewed. GENERAL APPEARANCE: Alert and interactive, follows commands, no acute distress, HEAD AND FACE: Non-traumatic. ENT: PERRL, pink conjunctivitis, eyelid no trauma, Mucous membrane moist. Bilateral tympanic membrane with erythema and bulging and tender NECK: Supple, nontender, no nuchal rigidity. CHEST: No tenderness, no crepitus, no paradoxical movement, no retractions. LUNGS: Clear, well ventilated, symmetric, no rales, no wheezing, no ronchi, no stridor, good breath sounds bilaterally. HEART: Regular rate, regular rhythm, no murmur, no gallops. ABDOMEN: Soft, positive bowel sounds, nondistended, no guarding, nontender, no rebound, no masses, RECTAL: Deferred. GENITAL: Deferred. NEUROLOGICAL: Gross motor function intact sensory function intact, Appropriate for age. MUSCULOSKELETAL: low back nontender, full range of motion. EXTREMITIES: Nontender, full range of motion. SKIN: Color pink, dry, no rash, no lacerations, no abrasions, no contusions. LYMPHATICS: Deferred. Course Quality Measures none Orders Category Date Time Status Acetaminophen Tab [Tylenol ES Tab] Med 12/06/24 19:37 Discontinued 1,000 mg PO X1 ONE cefuroxime axetiL [cefUROXime axetil] Med 12/06/24 19:37 Discontinued 500 mg PO X1 ONE Vital Signs Vital signs: Vital Signs Temperature 98.7 F 12/06/24 19:22 Pulse Rate 86 12/06/24 19:22 Respiratory Rate 20 12/06/24 19:22 Blood Pressure 127/79 12/06/24 19:22 Pulse Oximetry (%) 99 12/06/24 19:22 Oxygen Delivery Method Room Air 12/06/24 19:22 Ear MDM Narrative MDM Narrative:: 28-year-old female patient, about 20 weeks , came in for evaluation regarding bilateral earache and headache. Onset of symptoms for the last few days, severity of symptoms are moderate. Patient denies any fever. Denies any cough denies any sore throat denies any other complaints no medications taken prior to arrival. Patient denies any vaginal bleeding or spotting. Patient was given antibiotic for otitis media imaging is not needed at this time laboratory does not take this time. Patient data External records reviewed:: None Clinical information provided by:: patient and family Social determinants that could affect healthcare access:: none Patient has the following chronic illnesses:: None How is presenting disease/condition affected by chronic disease/condition?: no chronic disease Evaluation data The following diagnostics were reviewed and interpreted by me:: other (specify) (None) Lab and/or radiology exams considered but not ordered:: None Interpretation Summary: None Medications / Prescriptions Medications or Prescriptions considered but not ordered:: None Medication administrations:: Medication Administration History Discontinued Medications Acetaminophen (Acetaminophen 500 Mg Tablet) 1,000 mg PO X1 ONE Stop: 12/06/24 19:38 Last Admin: 12/06/24 19:49 Dose: 1,000 mg Documented By: PIERO Cefuroxime Axetil (Cefuroxime Axetil 250 Mg Tablet) 500 mg PO X1 ONE Stop: 12/06/24 19:38 Last Admin: 12/06/24 19:49 Dose: 500 mg Documented By: PIERO Tylenol and cefuroxime Consultations Consultation(s) initiated? (list below): No Diagnosis Ear Differential Diagnosis: otitis externa, otitis media and foreign body in ear Most likely diagnosis given after review of the tests above:: Otitis media Admission Indicated Admission indicated?: not indicated Admission Request Was there a request for admission?: No Disposition Plan Disposition Plan: Discharge Discharge Attestation Discharge Attestation: The patient and all family members were given an opportunity to ask questions and understood the discharge instructions. Discharge instructions specifically effects, indications for sooner follow up or return to the emergency department, and the expected course of current diagnosis. Patient condition: Stable Medical Decision Making MDM Narrative MDM Narrative: 28-year-old female patient, about 20 weeks , came in for evaluation regarding bilateral earache and headache. Onset of symptoms for the last few days, severity of symptoms are moderate. Patient denies any fever. Denies any cough denies any sore throat denies any other complaints no medications taken prior to arrival. Discharge Plan Plan Patient Disposition: HOME (Self Care) Discharge Disposition comment: Stable Prescriptions/Referrals Prescriptions/Med Rec: New cefuroxime axetil 500 mg tablet 500 mg PO BID Qty: 14 0RF No Action Vitamin Plus Low Iron 27 mg iron- 1 mg tablet 1 tab PO QDAY 90 Days Qty: 90 6RF Problem List Clinical Impression: Otitis media Patient/Caregiver Discharge Instructions Discharge Activity: activity as tolerated Education Materials: Common Middle Ear Problems Additional Instructions: Thank you for the opportunity for serving you today. You are stable for discharged . You are advised to: Follow-up with your PCP in 1 to 2 days Return to ED for worsening of symptoms Increase oral fluids Take medication as prescribed Print Language: Ukrainian Stand Alone Forms: Fany Award Info., Patient Portal Info Letter FARHAT/DAHLIA Supervising Physician FARHAT/DAHLIA Supervising Physician: MD Kwan
[2024-12-06] MEDS: ACETAMINOPHEN 500 MG TABLET 1000 MG PO (19:49)
== END 2024-12-06 20:13 | disposition home or self-care (01) ==
LOC: SERX 20:48
PROVIDERS: Emergency Provider Emergency Medicine
DX: O26.892 Other specified pregnancy related conditions, second trimester (principal); H66.93 Otitis media, unspecified, bilateral; Z3A.20 20 weeks gestation of pregnancy
CPT/HCPCS: 99282; A9270

== ENCOUNTER 2024-12-19 13:21 | Outpatient (AMB) | payer MEDICAID, SELFPAY ==
[2024-12-19 13:27] VITALS: BP 125/80; PULSE 79; RESP 16; TEMP 36.9; O2SAT 96; BMI 35.9
--- NOTE | 2024-12-19 13:27 | OBCLNT_ITS ---
Vital Signs 12/19/24 13:27 Height 1.55 m Height Method Stated Weight 86.353 kg Weight Measurement Method Standing Scale BMI 35.9 BP 125/80 Blood Pressure Source Automatic Cuff Blood Pressure Location Left Upper Arm Position Sitting Respiration 16 Pulse 79 Pulse Source Monitor Temp 98.5 F Temp Source Oral Pulse Oximetry (%) 96 Oxygen Delivery Method Room Air Allergies/Home Meds Allergies & Medications Allergies ampicillin Allergy (Severe, Verified 12/19/24 13:35) Rash Medication Reconciliation vitamins with calcium no.72-iron 27 mg-folic acid 1 mg tablet ( Vitamins Plus Low Iron) 1 tab PO QDAY 90 days #90 tabs 10/04/24 [Rx Confirmed 12/19/24] cefuroxime axetil 500 mg tablet 500 mg PO BID #14 tabs 12/06/24 [Rx Confirmed 12/19/24] nitrofurantoin macrocrystal 100 mg capsule 100 mg PO BID 7 days #14 caps 12/19/24 [Rx] Intake Visit Data Collection New Patient or Established: Established Patient (seen at [facility] within 3 years) Reason for Visit:: CARE Seen by Clinical Staff ONLY (RN/MA): No Elevator Constructor Supervisor Required: Yes Elevator Constructor Supervisor's name/title: ESTRELLA GALLARDO Do You Feel Safe at Home: Yes Authorities Contacted: N/A PCP or OBGYN visit in last 3 months: Yes Hx Now: Yes Are you currently on any form of Control: No Pain Present Currently: No Pain Scale Used: Rodríguez-Starkey/Numerical Pain scale:: 0 Smoking Status Smoking Status: Never smoker Questionnaires Covid-19 Vaccine Questionnaire Has patient been vacinated for Covid-19 Have you been vacinated for Covid-19: Yes PHQ-9 PHQ-2 Over the last 2 weeks, how often have you been bothered by any of the following problems? 1. Little interest or pleasure in doing things: not at all 2. Feeling down, depressed, or hopeless: not at all Total score: 0 PHQ-9 3. Trouble falling or staying asleep, or sleeping too much: Not at all 4. Feeling tired or having little energy: Not at all 5. Poor appetite or overeating: Not at all 6. Feeling bad about yourself - or that you are a failure or have let yourself or your family down: Not at all 7. Trouble concentrating on things, such as reading the newspaper or watching television: Not at all 8. Moving or speaking so slowly that other people could have noticed? - Or the opposite - being so fidgety or restless that you have been moving around a lot more than usual: not at all 9. Thoughts that you would be better off or of hurting yourself in some way: Not at all Total score: 0 Source: Developed by Drs. Alexi Doyle, Layne Regalado, Nikita Proctor and colleagues, with an educational karly from [employer]. 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 Complains of slight nausea. Discussed comfort measures of nausea for her. Will do OB panel, hCG ordered. Schedule sono for viability. Discussed signs symptoms of SAB and ER precautions given. Return in 4 weeks for OB check with OB, uterus feels 6 week size 11/20/24 -?-?-?-?-?-?-?-?-?-?-?-?- 19w 0d 85.332 kg 115/77 absent unknown 19 156 active no ob complaints, denies leaking,bleeding, uc. +FM, no ob complaints schedule MFM anatomy scan, AFP today. discuss ptl precaution, increase fluid, continue PNV,rtc 4 week 12/19/24 -?-?-?-?-?-?-?-?-?-?-?-?- 23w 1d 86.353 kg 125/80 absent unknown 24 158 active 23w1d with hx of 3 C/S and prior GDM, FM mainly at night, FHR 158. Plan: GTT today, schedule MFM U/S, f/u in 4 weeks, complete patient-submitted forms. ONOFRE Calculator Estimated Delivery Date Method Current WG Current Estimate 04/16/25 LMP (Certain) 23w 1d Other Estimates 04/18/25 Ultrasound #1 22w 6d Office Procedures OB Clinic LOC & Office Proc's Nursing/Assessment Patient Status: Established Patient OB Clinic Nursing Assessment: Medication Reconciliation, Update PMH in EMR and Vital Signs OB Clinic Coordination of Care: Complex Care and Chronic Disease 1-5, Consent,records obtained, informed consent, Education Simp Pt/Fam, Lab and Imaging orders, Results/Orders obtained and Staff clarify orders Special Needs: Heart tones Established Patient Charge Established Patient Point Assignment: 135 Established Patient Point Charge: EP Level 4 (120-155) Assessment & Plan Diagnosis / Problem List (1) Encounter for supervision of high risk in second trimester, antepartum: Status: Acute (2) Previous delivery affecting : Status: Acute
== END 2024-12-19 13:44 | disposition home or self-care (01) ==
PROVIDERS: Supervising Provider Obstetrics & Gynecology; Visit Provider Obstetrics & Gynecology
DX: O09.292 Supervision of pregnancy with other poor reproductive or obstetric history, second trimester (principal); O34.219 Maternal care for unspecified type scar from previous cesarean delivery; Z3A.23 23 weeks gestation of pregnancy; Z88.0 Allergy status to penicillin
CPT/HCPCS: 99214; G0463

== ENCOUNTER 2025-01-22 12:53 | Outpatient (AMB) | payer MEDICAID, SELFPAY ==
[2025-01-22 12:58] VITALS: BP 130/82; PULSE 86; RESP 16; TEMP 36.1; O2SAT 97; BMI 37.2
--- NOTE | 2025-01-22 12:58 | OBCLNT_ITS ---
Vital Signs 01/22/25 12:58 Height 1.55 m Height Method Stated Weight 89.471 kg Weight Measurement Method Standing Scale BMI 37.2 BP 130/82 Blood Pressure Source Automatic Cuff Blood Pressure Location Left Upper Arm Position Sitting Respiration 16 Pulse 86 Pulse Source Monitor Temp 97 F Temp Source Oral Pulse Oximetry (%) 97 Oxygen Delivery Method Room Air Allergies/Home Meds Allergies & Medications Allergies ampicillin Allergy (Severe, Verified 01/22/25 12:58) Rash Medication Reconciliation vitamins with calcium no.72-iron 27 mg-folic acid 1 mg tablet ( Vitamins Plus Low Iron) 1 tab PO QDAY 90 days #90 tabs 10/04/24 [Rx Confirmed 01/22/25] cefuroxime axetil 500 mg tablet 500 mg PO BID #14 tabs 12/06/24 [Rx Confirmed 01/22/25] fluconazole 150 mg tablet 150 mg PO Q3D 2 doses #2 tabs 01/04/25 [Rx Confirmed 01/22/25] aspirin 81 mg tablet 81 mg PO QDAY 90 days #90 tabs 01/22/25 [Rx] vits no.126-ferrous fum 28 mg iron-folic acid 800 mcg tablet (Classic P renatal) 1 tab PO QDAY 90 days #90 tabs 01/22/25 [Rx] Intake Visit Data Collection New Patient or Established: Established Patient (seen at [facility] within 3 years) Reason for Visit:: CARE Seen by Clinical Staff ONLY (RN/MA): No Templer Head Required: Yes Do You Feel Safe at Home: Yes Authorities Contacted: N/A PCP or OBGYN visit in last 3 months: Yes Hx Now: Yes Are you currently on any form of Control: Yes Pain Location: Back Pain Scale Used: Rodríguez-Starkey/Numerical Pain scale:: 3 Smoking Status Smoking Status: Never smoker Questionnaires Covid-19 Vaccine Questionnaire Has patient been vacinated for Covid-19 Have you been vacinated for Covid-19: No PHQ-9 PHQ-2 Over the last 2 weeks, how often have you been bothered by any of the following problems? 1. Little interest or pleasure in doing things: not at all 2. Feeling down, depressed, or hopeless: not at all Total score: 0 PHQ-9 3. Trouble falling or staying asleep, or sleeping too much: Not at all 4. Feeling tired or having little energy: Not at all 5. Poor appetite or overeating: Not at all 6. Feeling bad about yourself - or that you are a failure or have let yourself or your family down: Not at all 7. Trouble concentrating on things, such as reading the newspaper or watching television: Not at all 8. Moving or speaking so slowly that other people could have noticed? - Or the opposite - being so fidgety or restless that you have been moving around a lot more than usual: not at all 9. Thoughts that you would be better off or of hurting yourself in some way: Not at all Total score: 0 Source: Developed by Drs. Alexi Doyle, Layne Regalado, Nikita Proctor and colleagues, with an educational karly from [employer]. 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 Complains of slight nausea. Discussed comfort measures of nausea for her. Will do OB panel, hCG ordered. Schedule sono for viability. Discussed signs symptoms of SAB and ER precautions given. Return in 4 weeks for OB check with OB, uterus feels 6 week size 11/20/24 -?-?-?-?-?-?-?-?-?-?-?-?- 19w 0d 85.332 kg 115/77 absent unknown 19 156 active no ob complaints, denies leaking,bleeding, uc. +FM, no ob complaints schedule MFM anatomy scan, AFP today. discuss ptl precaution, increase fluid, continue PNV,rtc 4 week 12/19/24 -?-?-?-?-?-?-?-?-?-?-?-?- 23w 1d 86.353 kg 125/80 absent unknown 24 158 active 23w1d with hx of 3 C/S and prior GDM, FM mainly at night, FHR 158. Plan: GTT today, schedule MFM U/S, f/u in 4 weeks, complete patient-submitted forms. 01/22/25 -?-?-?-?-?-?-?-?-?-?-?-?- 28w 0d 89.471 kg 130/82 absent unknown 28 155 active Patient has a history of prior delivery. Patient reports back pain. Denies VALENZUELA, VC , and epigastric pain. - Patient had a maternal- medicine (MFM) ultrasound on 01/12/2025. - She reports back pain - Intermittent in nature - Relieved by rest and Tylenol - She denies contractions - She reports active movement - Patient mentions swelling noted during previous ultrasound visit Plan - Prescribe aspirin - Follow up appointment in 4 weeks - Sign consent form in approximately one month - Patient to bring form for clinician to fill out at next visit ONOFRE Calculator Estimated Delivery Date Method Current WG Current Estimate 04/16/25 LMP (Certain) 28w 1d Other Estimates 04/18/25 Ultrasound #1 27w 6d Notes Visit Date: 01/22/25 Last Updated by: Flavio Perez MD - Date: 01/12/2025 - [facility] Ultrasound: - Gestational age: 32 weeks and 0 days - position: Breech - Placenta: Posterior, left lateral - Cervical length (transvaginal): 4.68 cm - No structural abnormalities detected - Normal uterus and adnexa - Date: 12/28/2024 - One-hour glucose tolerance test: 93 mg/dL Assessment & Plan Diagnosis / Problem List (1) Encounter for supervision of high risk in second trimester, antep artum: Status: Acute Plan Problem List - , 32 weeks and 0 days - Breech presentation - Back pain - Edema Assessment at 32 weeks 0 days gestation, presenting for routine visit. Recent [facility] ultrasound on 01/12/2025 showed consistent dates, no structural abnormalities, and transvagin al cervical length of 4.68 cm without funneling. Placenta noted to be posterior, left lateral, with no previa. Fetus in breech presentation. One-hour glucose tolerance test on 12/28/2024 was 93, indicating no gestational diabetes. Patient reports back pain, likely due to pressure on spine. Edema was noted during previous ultrasound visit. heart rate 150 bpm, within normal range. Plan - Prescribe aspirin - Follow up appointment in 4 weeks - Sign consent form in approximately one month - Patient to bring form for clinician to fill out at next visit 1. Progress Reviewed gestational age (32 weeks and 0 days), growth, and heart rate (150 bpm). Planned frequent visits (every 2 weeks until 36 weeks, then weekly). 2. Instructed patient to monitor movements and report decreases immediately. 3. Testing Counseled on routine third-trimester labs per guidelines. Discussed potential need for ultrasound or monitoring based on her risk factors. 4. Preeclampsia Precaution Educated on preeclampsia signs: severe headache, vision changes, right upper quadrant pain, sudden swelling. Advised urgent reporting of symptoms and discussed blood pressure monitoring if she is high risk. 5. Labor Precautions Reviewed labor signs: regular contractions, pelvic pressure, back pain, bleeding, or fluid leakage. Instructed to seek immediate care for these symptoms. 6. Lifestyle and Delivery Preparation Reinforced vitamins, nutrition, and safe activity. Discussed plan, pain management, and . Advised on labor preparation (e.g., hospital bag) and expectations. 7. Psychosocial Support Assessed her emotional well-being and offered resources for mental health or parenting support.
== END 2025-01-22 13:07 | disposition home or self-care (01) ==
LOC: HODSOBC 12:53
PROVIDERS: Supervising Provider Obstetrics & Gynecology; Visit Provider Obstetrics & Gynecology
DX: O09.893 Supervision of other high risk pregnancies, third trimester (principal); O32.1XX0 Maternal care for breech presentation, not applicable or unspecified; Z3A.28 28 weeks gestation of pregnancy
CPT/HCPCS: 99214; G0463

== ENCOUNTER 2025-02-22 11:18 | Outpatient (AMB) | payer MEDICAID, SELFPAY ==
[2025-02-22 11:24] VITALS: BP 123/84; PULSE 74; RESP 14; TEMP 36.6; O2SAT 98; BMI 37.0
--- NOTE | 2025-02-22 11:24 | OBCLNT_ITS ---
Vital Signs 02/22/25 11:24 Height 1.55 m Height Method Stated Weight 89.074 kg Weight Measurement Method Standing Scale BMI 37.0 BP 123/84 Blood Pressure Source Automatic Cuff Blood Pressure Location Left Upper Arm Position Sitting Respiration 14 Pulse 74 Pulse Source Monitor Temp 98 F Temp Source Oral Pulse Oximetry (%) 98 Oxygen Delivery Method Room Air Allergies/Home Meds Allergies & Medications Allergies ampicillin Allergy (Severe, Verified 02/22/25 11:26) Rash Medication Reconciliation vitamins with calcium no.72-iron 27 mg-folic acid 1 mg tablet ( Vitamins Plus Low Iron) 1 tab PO QDAY 90 days #90 tabs 10/04/24 [Rx Confirmed 02/22/25] cefuroxime axetil 500 mg tablet 500 mg PO BID #14 tabs 12/06/24 [Rx Confirmed 02/22/25] fluconazole 150 mg tablet 150 mg PO Q3D 2 doses #2 tabs 01/04/25 [Rx Confirmed 02/22/25] aspirin 81 mg tablet 81 mg PO QDAY 90 days #90 tabs 01/22/25 [Rx Confirmed 02/22/25] vits no.126-ferrous fum 28 mg iron-folic acid 800 mcg tablet (Classic ) 1 tab PO QDAY 90 days #90 tabs 01/22/25 [Rx Confirmed 02/22/25] Intake Visit Data Collection New Patient or Established: Established Patient (seen at [facility] within 3 years) Reason for Visit:: CARE Seen by Clinical Staff ONLY (RN/MA): No Manager Of Community Relations Required: Yes Manager Of Community Relations's name/title: ESTRELLA GALLARDO Do You Feel Safe at Home: Yes Authorities Contacted: N/A PCP or OBGYN visit in last 3 months: Yes Hx Now: Yes Are you currently on any form of Control: No Pain Present Currently: Yes Pain Location: Abdomen (LOWER) and Back (LOWER) Pain Scale Used: Rodríguez-Starkey/Numerical Pain scale:: 5 Smoking Status Smoking Status: Never smoker Immunizations Flu Vaccine in the Last 12 Months: No Flu Vaccine Exclusion Criteria: No Exclusion Criteria Questionnaires Covid-19 Vaccine Questionnaire Has patient been vacinated for Covid-19 Have you been vacinated for Covid-19: No PHQ-9 PHQ-2 Over the last 2 weeks, how often have you been bothered by any of the following problems? 1. Little interest or pleasure in doing things: nearly every day 2. Feeling down, depressed, or hopeless: nearly every day Total score: 6 PHQ-9 3. Trouble falling or staying asleep, or sleeping too much: Several days 4. Feeling tired or having little energy: More than one-half days 5. Poor appetite or overeating: Not at all 6. Feeling bad about yourself - or that you are a failure or have let yourself or your family down: Nearly every day 7. Trouble concentrating on things, such as reading the newspaper or watching television: Several days 8. Moving or speaking so slowly that other people could have noticed? - Or the opposite - being so fidgety or restless that you have been moving around a lot more than usual: not at all 9. Thoughts that you would be better off or of hurting yourself in some way: More than one-half days Total score: 15.0 If you checked off any problems, how difficult have these problems made it for you to do your work, take care of things at home, or get along with other people?: very difficult Source: Developed by Drs. Alexi Doyle, Layne Regalado, Nikita Proctor and colleagues, with an educational karly from [employer]. 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 Complains of slight nausea. Discussed comfort measures of nausea for her. Will do OB panel, hCG ordered. Schedule sono for viability. Discussed signs symptoms of SAB and ER precautions given. Return in 4 weeks for OB check with OB, uterus feels 6 week size 11/20/24 -?-?-?-?-?-?-?-?-?-?-?-?- 19w 0d 85.332 kg 115/77 absent unknown 19 156 active no ob complaints, denies leaking,bleeding, uc. +FM, no ob complaints schedule MFM anatomy scan, AFP today. discuss ptl precaution, increase fluid, continue PNV,rtc 4 week 12/19/24 -?-?-?-?-?-?-?-?-?-?-?-?- 23w 1d 86.353 kg 125/80 absent unknown 24 158 active 23w1d with hx of 3 C/S and prior GDM, FM mainly at night, FHR 158. Plan: GTT today, schedule MFM U/S, f/u in 4 weeks, complete patient-submitted forms. 01/22/25 -?-?-?-?-?-?-?-?-?-?-?-?- 28w 0d 89.471 kg 130/82 absent unknown 28 155 active Patient has a history of prior delivery. Patient reports back pain. Denies VALENZUELA, VC , and epigastric pain. - Patient had a maternal- medicine (MFM) ultrasound on 01/12/2025. - She reports back pain - Intermittent in nature - Relieved by rest and Tylenol - She denies contractions - She reports active movement - Patient mentions swelling noted during previous ultrasound visit Plan - Prescribe aspirin - Follow up appointment in 4 weeks - Sign consent form in approximately one month - Patient to bring form for clinician to fill out at next visit 02/22/25 -?-?-?-?-?-?-?-?-?-?-?-?- 32w 3d 89.074 kg 123/84 absent unknown 32 145 active - She reports the baby is active. - She requested to sign tubal ligation c onsent form today. - She requested to see a [facility] provider. - She works night shifts. - Patient to sign tubal ligation consent form today - Create behavioral health referral and coordinate through patient's insurance - Follow up in 2 weeks - Ensure tubal ligation consent specifie s open procedure (not laparoscopic) for section delivery ONOFRE Calculator Estimated Delivery Date Method Current WG Current Estimate 04/16/25 LMP (Certain) 33w 1d Other Estimates 04/18/25 Ultrasound #1 32w 6d Notes Visit Date: 01/22/25 Last Updated by: Flavio Perez MD - Date: 01/12/2025 - [facility] Ultrasound: - Gestational age: 32 weeks and 0 days - position: Breech - Placenta: Posterior, left lateral - Cervical length (transvaginal): 4.68 cm - No structural abnormalities detected - Normal uterus and adnexa - Date: 12/28/2024 - One-hour glucose tolerance test: 93 mg/dL Office Procedures OBC Clinic LOC & Office Proc's Nursing/Assessment Patient Status: Established Patient OB Clinic Nursing Assessment: Medication Reconciliation, Update PMH in EMR and Vital Signs OB Clinic Coordination of Care: Complex Care and Chronic Disease 1-5, Consent,records obtained, informed consent, Education Simp Pt/Fam, 1 Ins Authorization, Lab and Imaging orders, Results/Orders obtained and Staff clarify orders Special Needs: Heart tones Established Patient Charge Established Patient Point Assignment: 150 Established Patient Point Charge: EP Level 4 (120-155) Assessment & Plan Diagnosis / Problem List (1) Depression affecting in third trimester, antepartum: Status: Acute (2) Maternal care for low transverse scar from previous delivery: Status: Acute Plan Assessment 32-week and 3-day gestation in a 6, para 4 patient presenting for visit. heart rate is 157 beats per minute, which is within normal limits. Patient is requesting tubal ligation consent and has requested to see a behavioral health provider. Plan - Patient to sign tubal ligation consent form today - Create behavioral health referral and coordinate through patient's insurance - Follow up in 2 weeks - Ensure tubal ligation consent specifies open procedure (not laparoscopic) for section delivery 1. Progress Reviewed gestational age (32 weeks and 3 days), growth, and heart rate (157 bpm, normal). Planned frequent visits (every 2 weeks until 36 weeks, t hen weekly). 2. Instructed patient to monitor movements and report decreases immediately. 3. Testing Counseled on routine third-trimester labs per guidelines. Discussed potential need for ultrasound or monitoring based on risk factors. 4. Preeclampsia Precaution Educated on preeclampsia signs: severe headache, vision changes, right upper quadrant pain, sudden swelling. Advised urgent reporting of symptoms and discussed blood pressure monitoring if high risk. 5. Labor Precautions Reviewed labor signs: regular contractions, pelvic pressure, back pain, bleeding, or fluid leakage. Instructed to seek immediate care for these symptoms. 6. Lifestyle and Delivery Preparation Reinforced vitamins, nutrition, and safe activity. Discussed plan, pain management, and . Advised on labor preparation (e.g., hospital bag) and expectations. 7. Psychosocial Support Assessed emotional well-being and offered resources for mental health or parenting support.
== END 2025-02-22 11:37 | disposition home or self-care (01) ==
LOC: HODSOBC 11:18
PROVIDERS: Supervising Provider Obstetrics & Gynecology; Visit Provider Obstetrics & Gynecology
DX: O09.293 Supervision of pregnancy with other poor reproductive or obstetric history, third trimester (principal); O34.211 Maternal care for low transverse scar from previous cesarean delivery; O09.893 Supervision of other high risk pregnancies, third trimester; O99.343 Other mental disorders complicating pregnancy, third trimester; F32.A Depression, unspecified; Z3A.32 32 weeks gestation of pregnancy
CPT/HCPCS: 99214; G0463

== ENCOUNTER 2025-03-05 23:15 | Observation (INO) | payer MEDICAID, SELFPAY ==
[2025-03-05 23:44] VITALS: BP 130/74; PULSE 79
[2025-03-06] VITALS (11 sets, daily range): BP systolic 100–139; BP diastolic 58–95; PULSE 75–81; RESP 18–98; TEMP 37; BMI 39.3
[2025-03-06] MEDS: RINGERS LACTATED 1000 ML 1,000 ML 999 ML IV (01:27)
[2025-03-06 01:45] LABS: Collection Type, Urine Clean Catch
[2025-03-06 01:47] LABS: Basophils # (Auto) 0.1 Thou/mm3 (0.0-0.2); Basophils % (Auto) 1 % (0-2.5); Eosinophils # (Auto) 0.1 Thou/mm3 (0.0-0.5); Eosinophils % (Auto) 1 % (0-10); Hematocrit 33.1 % (36.0-46.0); Hemoglobin 10.8 g/dL (12.0-16.0); Immature Granulocytes Auto 0.31 Thou/mm3 (0.00-0.00); Lymphocytes # (Auto) 1.7 Thou/mm3 (1.0-4.8); Lymphocytes % (Auto) 21 % (10-50); Mean Corpuscular HGB Conc 32.6 g/dl (31.0-37.0); Mean Corpuscular Hemoglobin 27.0 pg (25.0-35.0); Mean Corpuscular Volume 83 fL (80-100); Monocytes # (Auto) 0.7 Thou/mm3 (0.0-0.8); Monocytes % (Auto) 8 % (0-12); Neutrophils # (Auto) 5.3 Thou/mm3 (1.8-7.7); Neutrophils % (Auto) 65 % (37-80); Nucleated Red Blood Cell # 0.00 Thou/mm3 (0.00-0.00); Nucleated Red Blood Cell % 0 /100 WBC (0); Platelet Count 173 Thou/mm3 (140-440); RDW Standard Deviation 41.3 fL (36.4-46.3); Red Blood Count 4.00 Miln/mm3 (4.00-5.20); White Blood Count 8.1 Thou/mm3 (3.6-11.0)
[2025-03-06 01:51] LABS: Amorphous Crystals,Urine Present (Absent); Bacteria,Urine 1+; Bilirubin,Urine Negative (Negative); Blood,Urine Trace (Negative); Clarity,Urine Turbid (Clear/Hazy); Color,Urine Lt-Yellow (Lt Yel-Yel); Glucose, Urine Negative (Negative); Ketones,Urine Negative (Negative); Leukocyte Esterase,Urine Positive (Negative); Nitrite,Urine Negative (Negative); PH,Urine 7.0 (5.0-7.0); Protein,Urine Negative (Neg - Trace); RBC,Urine 13 /hpf (0-3); Specific Gravity,Urine 1.011 (1.001-1.035); Squamous Epithelial Cell,Urine 9 /hpf (0-5); Urobilinogen,Urine Negative mg/dL (0.0-1.0); WBC,Urine 16 /hpf (0-5)
[2025-03-06 01:57] LABS: Creatinine,Random Urine 53 mg/dL (30-125); Protein Total, Random Urine 16 mg/dL (1-14)
[2025-03-06 02:05] LABS: Fibrinogen 481 mg/dL (175-375); INR 1.0 (0.9-1.3); Partial Thromboplastin Time 25.3 Seconds (22.0-36.0); Prothrombin Time 10.2 Seconds (9.0-12.2)
[2025-03-06 02:15] LABS: Alanine Aminotransferase < 7 U/L (10-49); Albumin, Serum 3.9 gm/dL (3.5-5.0); Albumin/Globulin Ratio 1.9 (1.2-2.2); Alkaline Phosphatase 109 U/L (46-116); Anion Gap 10 (7-16); Aspartate Amino Transferase 11 U/L (0-34); BUN/Creatinine Ratio 10 Ratio (12-20); Bilirubin,Total 0.4 mg/dL (0.3-1.2); Blood Urea Nitrogen < 5 mg/dL (9-23); Calcium 8.9 mg/dL (8.3-10.6); Calcium (Corrected) 9.0 mg/dL (8.5-10.1); Carbon Dioxide 22.9 mMol/L (20.0-31.0); Chloride 107 mMol/L (98-107); Creatinine (Component) 0.5 mg/dL (0.6-1.3); Estimated Creatinine Clearance 170.4 mL/min (>60); Globulin 2.1 gm/dL (2.3-3.5); Glucose 91 mg/dL (74-106); Osmolality,Calculated 276 (275-295); Potassium 4.2 mMol/L (3.4-5.1); Sodium 140 mMol/L (136-145); Total Protein 6.0 gm/dL (5.7-8.2); Uric Acid 3.6 mg/dL (3.1-7.8); eGFR > 60 See Note
== END 2025-03-06 03:12 | disposition home or self-care (01) ==
PROVIDERS: Admitting Provider Obstetrics & Gynecology; Visit Provider Obstetrics & Gynecology
DX: O47.03 False labor before 37 completed weeks of gestation, third trimester (principal); Z3A.34 34 weeks gestation of pregnancy; O26.893 Other specified pregnancy related conditions, third trimester; M54.9 Dorsalgia, unspecified
CPT/HCPCS: 36415; 59025; 59899; 80053; 81001; 82570; 84156; 84550; 85025; 85384; 85610; 85730; 87086; J7120

== ENCOUNTER 2025-03-19 09:42 | Observation (INO) | payer MEDICAID, SELFPAY ==
[2025-03-19] VITALS (43 sets, daily range): BP systolic 118; BP diastolic 71; PULSE 67–104; RESP 18–99; TEMP 37.6; O2SAT 97–100; BMI 40.9
[2025-03-19] MEDS: RINGERS LACTATED 1000 ML 1,000 ML 999 ML IV (10:00)
--- NOTE | 2025-03-19 10:05 | XR_ITS ---
Examination: Biophysical profile, ultrasound Date and time of exam: March 19, 2025, 1226 hours INDICATIONS: Labor evaluation, history of vaginal bleeding and pelvic cramping Technique: Multiple transabdominal sonographic images of the pelvis abdomen obtained. Attention is directed to the breathing movement, gross body movement, amniotic fluid volume and tone. Findings: Amniotic fluid index 7.4 cm Total biophysical profile is 8 of 8. breathing movement is 2. Gross body movement is 2. tone is 2. Qualitative amniotic fluid volume is 2 Impression: Biophysical profile is 8 of 8.
--- NOTE | 2025-03-19 10:06 | XR_ITS ---
Examination: Complete OB ultrasound greater than 14 weeks Date and time of exam: March 19, 2025, 1231 hours INDICATIONS: Labor evaluation Findings: Viable intrauterine single fetus with single amniotic sac presentation cephalic Cardiac motion 132 bpm Placenta fundal posterior grade 2 Medical cord insertion 3 vessel seen Amniotic fluid index 7.5 cm Cervix 3.4 cm. Composite estimated gestational age based on BPD, head circumference, abdominal circumference, femur length is 36 weeks 0 days Estimated weight 2767 g. Survey of intracranial anatomy, spinal anatomy, abdominal anatomy, four-chamber heart performed with no abnormalities identified. Impression: Viable intrauterine gestation cephalic presentation.
[2025-03-19 10:30] LABS: Collection Type, Urine Clean Catch
[2025-03-19] MEDS: RINGERS LACTATED 1000 ML 1,000 ML 100 ML IV (10:54)
[2025-03-19 11:58] LABS: Bacteria,Urine 1+; Bilirubin,Urine Negative (Negative); Blood,Urine Trace (Negative); Clarity,Urine Turbid (Clear/Hazy); Color,Urine Lt-Yellow (Lt Yel-Yel); Glucose, Urine Negative (Negative); Ketones,Urine Negative (Negative); Leukocyte Esterase,Urine Positive (Negative); Nitrite,Urine Negative (Negative); PH,Urine 7.5 (5.0-7.0); Protein,Urine Trace (Neg - Trace); RBC,Urine 10 /hpf (0-3); Specific Gravity,Urine 1.015 (1.001-1.035); Squamous Epithelial Cell,Urine 16 /hpf (0-5); Urobilinogen,Urine Negative mg/dL (0.0-1.0); WBC,Urine 9 /hpf (0-5)
[2025-03-19] MEDS: cefTRIAXone 1,000 MG in SODIUM CHLORIDE 0.9% (Popper) 50 ML 100 MG IV (13:03)
--- NOTE | 2025-03-19 14:21 | PD.EVENT ---
Documentation for date of: 03/19/25 Event Note Event Note: Patient is a 29-year-old with history of x 3 for repeat with tubal ligation. She came to triage at 36 to 37 weeks for cramping. She was found to be closed thick and high and after IV fluids was not cramping anymore. Cervix was unchanged. Patient's urinalysis revealed possible UTI and she was given 1 dose of Rocephin. I did prescribe Keflex as an outpatient. She will follow-up next week with Dr. Perez. Her tubal ligation papers were signed in the office with Dr. Perez at 02/22/2025. Her is scheduled 04/04/2025 at 38 2/7 weeks secondary to repeat #4 and BMI of 41. Patient was told about the new date for her .
== END 2025-03-19 13:47 | disposition home or self-care (01) ==
PROVIDERS: Admitting Provider Obstetrics & Gynecology; Visit Provider Obstetrics & Gynecology
DX: O47.03 False labor before 37 completed weeks of gestation, third trimester (principal); Z3A.36 36 weeks gestation of pregnancy
CPT/HCPCS: 59025; 59899; 76805; 76819; 81001; 87086; J0696; J7050; J7120

== ENCOUNTER 2025-03-23 08:25 | Outpatient (AMB) | payer MEDICAID, SELFPAY ==
[2025-03-23 08:37] VITALS: BP 124/79; PULSE 83; RESP 18; TEMP 36.2; O2SAT 98
--- NOTE | 2025-03-23 08:37 | OBCLNT_ITS ---
Vital Signs 03/23/25 08:37 Weight 88.677 kg Weight Measurement Method Standing Scale BP 124/79 Blood Pressure Source Automatic Cuff Blood Pressure Location Left Upper Arm Position Sitting Respiration 18 Pulse 83 Pulse Source Monitor Temp 97.2 F Temp Source Oral Pulse Oximetry (%) 98 Oxygen Delivery Method Room Air Allergies/Home Meds Allergies & Medications Allergies ampicillin Allergy (Severe, Verified 03/23/25 08:38) Rash Medication Reconciliation aspirin 81 mg tablet 81 mg PO QDAY 90 days #90 tabs 01/22/25 [Rx Confirmed 03/23/25] vits no.126-ferrous fum 28 mg iron-folic acid 800 mcg tablet (Classic ) 1 tab PO QDAY 90 days #90 tabs 01/22/25 [Rx Confirmed 03/23/25] Immunizations Immunizations Flu Vaccine in the Last 12 Months: No Flu Vaccine Exclusion Criteria: No Exclusion Criteria Care OB Visit Log OB Flowsheet Initial Weight: Not Recorded Date -?-?-?-?-?-?-?-?-?-?-?-?- EGA Weight BP Alb Glu CTX Pres Fundal ht FHR Mov Dilation Station Effacement Hx Notes Visit Note 08/21/24 -?-?-?-?-?-?-?-?-?-?-?-?- 6w 0d 80.796 kg 123/72 absent absent 28-year-old previous x 3. Complains of slight nausea. Discussed comfort measures of nausea for her. Will do OB panel, hCG ordered. Schedule sono for viability. Discussed signs symptoms of SAB and ER precautions given. Return in 4 weeks for OB check with OB, uterus feels 6 week size 11/20/24 -?-?-?-?-?-?-?-?-?-?-?-?- 19w 0d 85.332 kg 115/77 absent unknown 19 156 active no ob complaints, denies leaking,bleeding, uc. +FM, no ob complaints schedule MFM anatomy scan, AFP today. discuss ptl precaution, increase fluid, continue PNV,rtc 4 week 12/19/24 -?-?-?-?-?-?-?-?-?-?-?-?- 23w 1d 86.353 kg 125/80 absent unknown 24 158 active 23w1d with hx of 3 C/S and prior GDM, FM mainly at night, FHR 158. Plan: GTT today, schedule MFM U/S, f/u in 4 weeks, complete patient-submitted forms. 01/22/25 -?-?-?-?-?-?-?-?-?-?-?-?- 28w 0d 89.471 kg 130/82 absent unknown 28 155 active Patient has a history of prior delivery. Patient reports back pain. Denies VALENZUELA, VC , and epigastric pain. - Patient had a maternal- medicine (MFM) ultrasound on 01/12/2025. - She reports back pain - Intermittent in nature - Relieved by rest and Tylenol - She denies contractions - She reports active movement - Patient mentions swelling noted during previous ultrasound visit Plan - Prescribe aspirin - Follow up appointment in 4 weeks - Sign consent form in approximately one month - Patient to bring form for clinician to fill out at next visit 02/22/25 -?-?-?-?-?-?-?-?-?-?-?-?- 32w 3d 89.074 kg 123/84 absent unknown 32 145 active - She reports the baby is active. - She requested to sign tubal ligation c onsent form today. - She requested to see a behavioral [facility] provider. - She works night shifts. - Patient to sign tubal ligation consent form today - Create behavioral health referral and coordinate through patient's insurance - Follow up in 2 weeks - Ensure tubal ligation consent specifie s open procedure (not laparoscopic) for section delivery 03/09/25 -?-?-?-?-?-?-?-?-?-?-?-?- 34w 4d 89.131 kg 125/78 absent unknown 34 165 active Patient has a history of 3 prior deliveries. No contractions, LOF, VB and reports goo d FM. She was concerned about elevated blood p ressures at home, but blood pressure here is within normal limits. Denies VALENZUELA, VC, and epigastric pain. - She has a history of multiple pregnanc ies with 2 deliveries, 2 term deliveries, and 3 sections. - She reports concerns about elevated bl ood pressures at home. - She did not bring her glucose logs to this visit Plan - Return in 2 weeks for GBS ONOFRE Calculator Estimated Delivery Date Method Current WG Current Estimate 04/16/25 LMP (Certain) 36w 4d Other Estimates 04/18/25 Ultrasound #1 36w 2d Notes Visit Date: 01/22/25 Last Updated by: Flavio Perez MD - Date: 01/12/2025 - [facility] Ultrasound: - Gestational age: 32 weeks and 0 days - position: Breech - Placenta: Posterior, left lateral - Cervical length (transvaginal): 4.68 cm - No structural abnormalities detected - Normal uterus and adnexa - Date: 12/28/2024 - One-hour glucose tolerance test: 93 mg/dL Office Procedures OBC Clinic LOC & Office Proc's Nursing/Assessment Patient Status: Established Patient OB Clinic Nursing Assessment: Medication Reconciliation, Update PMH in EMR and Vital Signs OB Clinic Coordination of Care: Consent,records obtained, informed consent, Education Simp Pt/Fam, Lab and Imaging orders, Results/Orders obtained and Staff clarify orders Established Patient Charge Established Patient Point Assignment: 80 Established Patient Point Charge: EP Level 3 (80-115) Assessment & Plan Diagnosis / Problem List (1) Encounter for supervision of high risk in third trimester, antepartum: Status: Acute Plan GBS today. Return with OB for OB check next week. Discussed labor precautions and kick count. Patient is scheduled already for repeat and tubal ligation.
== END 2025-03-23 09:10 | disposition home or self-care (01) ==
PROVIDERS: Supervising Provider Advanced Practice Midwife; Visit Provider Advanced Practice Midwife
DX: O09.293 Supervision of pregnancy with other poor reproductive or obstetric history, third trimester (principal); O34.219 Maternal care for unspecified type scar from previous cesarean delivery; Z3A.36 36 weeks gestation of pregnancy; Z36.85 Encounter for antenatal screening for Streptococcus B; Z88.0 Allergy status to penicillin
CPT/HCPCS: 99213; G0463

== ENCOUNTER 2025-04-03 11:07 | Outpatient (AMB) | payer MEDICAID, SELFPAY ==
[2025-04-03 11:37] VITALS: BP 125/80; PULSE 85; RESP 16; TEMP 36.8; O2SAT 97; BMI 36.6
--- NOTE | 2025-04-03 11:37 | OBCLNT_ITS ---
Vital Signs 04/03/25 11:37 Height 1.57 m Height Method Stated Weight 90.378 kg Weight Measurement Method Standing Scale BMI 36.6 BP 125/80 Blood Pressure Source Automatic Cuff Blood Pressure Location Left Upper Arm Position Sitting Respiration 16 Pulse 85 Pulse Source Monitor Temp 98.2 F Temp Source Oral Pulse Oximetry (%) 97 Oxygen Delivery Method Room Air Allergies/Home Meds Allergies & Medications Allergies ampicillin Allergy (Severe, Verified 04/03/25 11:38) Rash Medication Reconciliation aspirin 81 mg tablet 81 mg PO QDAY 90 days #90 tabs 01/22/25 [Rx Confirmed 04/03/25] vits no.126-ferrous fum 28 mg iron-folic acid 800 mcg tablet (Classic ) 1 tab PO QDAY 90 days #90 tabs 01/22/25 [Rx Confirmed 04/03/25] Immunizations Immunizations Flu Vaccine in the Last 12 Months: Yes Date of most recent flu vaccination: 04/03/25 Flu Vaccine Exclusion Criteria: Already Received Care OB Visit Log OB Flowsheet Initial Weight: Not Recorded Date -?-?-?-?-?-?-?-?-?-?-?-?- EGA Weight BP Alb Glu CTX Pres Fundal ht FHR Mov Dilation Station Effacement Hx Notes Visit Note 08/21/24 -?-?-?-?-?-?-?-?-?-?-?-?- 6w 0d 80.796 kg 123/72 absent absent 28-year-old previous x 3. Complains of slight nausea. Discussed comfort measures of nausea for her. Will do OB panel, hCG ordered. Schedule sono for viability. Discussed signs symptoms of SAB and ER precautions given. Return in 4 weeks for OB check with OB, uterus feels 6 week size 11/20/24 -?-?-?-?-?-?-?-?-?-?-?-?- 19w 0d 85.332 kg 115/77 absent unknown 19 156 active no ob complaints, denies leaking,bleeding, uc. +FM, no ob complaints schedule MFM anatomy scan, AFP today. discuss ptl precaution, increase fluid, continue PNV,rtc 4 week 12/19/24 -?-?-?-?-?-?-?-?-?-?-?-?- 23w 1d 86.353 kg 125/80 absent unknown 24 158 active 23w1d with hx of 3 C/S and prior GDM, FM mainly at night, FHR 158. Plan: GTT today, schedule MFM U/S, f/u in 4 weeks, complete patient-submitted forms. 01/22/25 -?-?-?-?-?-?-?-?-?-?-?-?- 28w 0d 89.471 kg 130/82 absent unknown 28 155 active Patient has a history of prior delivery. Patient reports back pain. Denies VALENZUELA, VC , and epigastric pain. - Patient had a maternal- medicine (MFM) ultrasound on 01/12/2025. - She reports back pain - Intermittent in nature - Relieved by rest and Tylenol - She denies contractions - She reports active movement - Patient mentions swelling noted during previous ultrasound visit Plan - Prescribe aspirin - Follow up appointment in 4 weeks - Sign consent form in approximately one month - Patient to bring form for clinician to fill out at next visit 02/22/25 -?-?-?-?-?-?--?-?-?-?-?-?- 32w 3d 89.074 kg 123/84 absent unknown 32 145 active - She reports the baby is active. - She requested to sign tubal ligation c onsent form today. - She requested to see a behavioral [facility] provider. - She works night shifts. - Patient to sign tubal ligation consent form today - Create behavioral health referral and coordinate through patient's insurance - Follow up in 2 weeks - Ensure tubal ligation consent specifie s open procedure (not laparoscopic) for section delivery 03/09/25 -?-?-?-?-?-?-?-?-?-?-?-?- 34w 4d 89.131 kg 125/78 absent unknown 34 165 active Patient has a history of 3 prior deliveries. No contractions, LOF, VB and reports goo d FM. She was concerned about elevated blood p ressures at home, but blood pressure here is within normal limits. Denies VALENZUELA, VC, and epigastric pain. - She has a history of multiple pregnanc ies with 2 deliveries, 2 term deliveries, and 3 sections. - She reports concerns about elevated bl ood pressures at home. - She did not bring her glucose logs to this visit Plan - Return in 2 weeks for GBS 03/23/25 -?-?-?-?-?-?-?-?-?-?-?-?- 36w 4d 88.677 kg 124/79 absent cephalic 36 156 active No OB concerns or complaints. Denies contractions, leaking, bleeding. Reports good movement GBS today. Disc ussed labor precautions and kick count twice a day. Patient scheduled for repeat and tubal ligation. Return in a week for OB check 04/03/25 -?-?-?-?-?-?-?-?-?-?-?-?- 38w 1d 90.378 kg 125/80 absent cephalic 39 155 active - She is currently 38 weeks 1 day gestation with an estimated due date of April 16. - Patient reports the baby is active wit h no contractions or problems. - She endorses back pain which she attri butes to her . - She denies any concerns about mo vement, stating she would seek care if the baby stopped moving for more than an hour. - This appears to be a routine follow-up visit after approximately 3 weeks since her last appointment. - Schedule d for repeat section tomorrow (April 04) at 7:30 AM - Patient to check-in at 5:30 AM - NPO after 10 PM tonight - This will be repeat section # 4 with bilateral tubal ligation - GBS culture to be verified prior to [facility] - Post-operative follow-up appointment t o be scheduled ONOFRE Calculator Estimated Delivery Date Method Current WG Current Estimate 04/16/25 LMP (Certain) 38w 1d Other Estimates 04/18/25 Ultrasound #1 37w 6d 04/16/25 Ultrasound #2 38w 1d 04/16/25 Manual 38w 1d Notes Visit Date: 01/22/25 Last Updated by: Flavio Perez MD - Date: 01/12/2025 - [facility] Ultrasound: - Gestational age: 32 weeks and 0 days - position: Breech - Placenta: Posterior, left lateral - Cervical length (transvaginal): 4.68 cm - No structural abnormalities detected - Normal uterus and adnexa - Date: 12/28/2024 - One-hour glucose tolerance test: 93 mg/dL Office Procedures O[facility] Clinic LOC & Office Proc's Nursing/Assessment Patient Status: Established Patient OB Clinic Nursing Assessment: Medication Reconciliation, Update PMH in EMR and Vital Signs OB Clinic Coordination of Care: Complex Care and Chronic Disease 1-5, Consent,records obtained, informed consent, Education Simp Pt/Fam, 1 Ins Authorization, Lab and Imaging orders, Results/Orders obtained and Staff clarify orders Special Needs: Heart tones Established Patient Charge Established Patient Point Assignment: 150 Established Patient Point Charge: EP Level 4 (120-155) Injection/Vaccine Admin SQ Im Injection: Yes Immunizations flu vac ts (6mos up)-PF 45 mcg(15mcg x3)/0.5 mL IM syringe Performing Provider: Flavio Perez MD Performing Location: [facility] Administered by: Martha Antonio MA on 04/03/25 11:38 Dose Route Admin Location Dispensed Lot Number Expiration Date Pack age ND [employer] Application Engineer 0.5 mL IM Right Deltoid 0.5 mL [id number] 10/30/25 [id number] [employer] VIS Given Date VIS Provided VIS Publication Date 04/03/25 Single Vaccine 24 Eligibility Eligibility Date Funding Source Public Non-[facility] Assessment & Plan Diagnosis / Problem List (1) Maternal care for low transverse scar from previous delivery: Status: Acute Plan Problem List - at 38 weeks 1 day gestation - History of previous sections - Scheduled repeat section with bilateral tubal ligation Plan - Scheduled for repeat section tomorrow (April 04) at 7:30 AM - Patient to check-in at 5:30 AM - NPO after 10 PM tonight - This will be repeat section #4 with bilateral tubal ligation - GBS culture to be verified prior to surgery - Post-operative follow-up appointment to be scheduled 1. Progress Reviewed gestational age, growth, and heart rate. Planned frequent visits (every 2 weeks until 36 weeks, then weekly). 2. Instructed patient to monitor movements and report decreases immediately. 3. Testing Counseled on routine third-trimester labs per guidelines. Discussed potential need for ultrasound or monitoring based on risk fa ctors. 4. Preeclampsia Precaution Educated on preeclampsia signs: severe headache, vision changes, right upper quadrant pain, sudden swelling. Advised urgent reporting of symptoms and discussed blood pressure monitoring if high risk. 5. Labor Precautions Reviewed labor signs: regular contractions, pelvic pressure, back pain, bleeding, or fluid leakage. Instructed to seek immediate care for these symptoms. 6. Lifestyle and Delivery Preparation Reinforced vitamins, nutrition, and safe activity. Discussed plan, pain management, and . Advised on labor preparation (e.g., hospital bag) and expectations. 7. Psychosocial Support Assessed emotional well-being and offered resources for mental health or parenting support.
== END 2025-04-03 11:54 | disposition home or self-care (01) ==
LOC: HODSOBC 11:07
PROVIDERS: Supervising Provider Obstetrics & Gynecology; Visit Provider Obstetrics & Gynecology
DX: O09.293 Supervision of pregnancy with other poor reproductive or obstetric history, third trimester (principal); O34.211 Maternal care for low transverse scar from previous cesarean delivery; Z3A.38 38 weeks gestation of pregnancy; Z23 Encounter for immunization; Z88.0 Allergy status to penicillin
CPT/HCPCS: 90471; 90715; 96372; 99214; G0463

== ENCOUNTER 2025-04-04 05:00 | Inpatient (IN) | payer MEDICAID, SELFPAY ==
[2025-04-04] VITALS (31 sets, daily range): BP systolic 91–122; BP diastolic 49–77; PULSE 68–97; RESP 16–30; TEMP 36.7–37.2; O2SAT 93–98
--- NOTE | 2025-04-04 05:54 | PC.NURSE ---
spoke with md javier in regards to pt allergy to PCN. states she is ok with pt to recieve ancef prior to surgery.
[2025-04-04 06:38] LABS: Basophils # (Auto) 0.1 Thou/mm3 (0.0-0.2); Basophils % (Auto) 1 % (0-2.5); Eosinophils # (Auto) 0.1 Thou/mm3 (0.0-0.5); Eosinophils % (Auto) 1 % (0-10); Hematocrit 35.0 % (36.0-46.0); Hemoglobin 11.6 g/dL (12.0-16.0); Immature Granulocytes Auto 0.39 Thou/mm3 (0.00-0.00); Lymphocytes # (Auto) 2.4 Thou/mm3 (1.0-4.8); Lymphocytes % (Auto) 22 % (10-50); Mean Corpuscular HGB Conc 33.1 g/dl (31.0-37.0); Mean Corpuscular Hemoglobin 26.4 pg (25.0-35.0); Mean Corpuscular Volume 80 fL (80-100); Monocytes # (Auto) 0.7 Thou/mm3 (0.0-0.8); Monocytes % (Auto) 7 % (0-12); Neutrophils # (Auto) 7.0 Thou/mm3 (1.8-7.7); Neutrophils % (Auto) 65 % (37-80); Nucleated Red Blood Cell # 0.00 Thou/mm3 (0.00-0.00); Nucleated Red Blood Cell % 0 /100 WBC (0); Platelet Count 190 Thou/mm3 (140-440); RDW Standard Deviation 42.4 fL (36.4-46.3); Red Blood Count 4.39 Miln/mm3 (4.00-5.20); White Blood Count 10.7 Thou/mm3 (3.6-11.0)
[2025-04-04 06:46] LABS: Fibrinogen 560 mg/dL (175-375); INR 0.9 (0.9-1.3); Partial Thromboplastin Time 25.6 Seconds (22.0-36.0); Prothrombin Time 10.0 Seconds (9.0-12.2)
[2025-04-04 06:58] LABS: Alanine Aminotransferase < 7 U/L (10-49); Albumin, Serum 4.3 gm/dL (3.5-5.0); Albumin/Globulin Ratio 1.6 (1.2-2.2); Alkaline Phosphatase 151 U/L (46-116); Anion Gap 11 (7-16); Aspartate Amino Transferase 13 U/L (0-34); BUN/Creatinine Ratio 13 Ratio (12-20); Bilirubin,Total 0.4 mg/dL (0.3-1.2); Blood Urea Nitrogen 8 mg/dL (9-23); Calcium 8.9 mg/dL (8.3-10.6); Calcium (Corrected) 8.9 mg/dL (8.5-10.1); Carbon Dioxide 21.0 mMol/L (20.0-31.0); Chloride 107 mMol/L (98-107); Creatinine (Component) 0.6 mg/dL (0.6-1.3); Globulin 2.7 gm/dL (2.3-3.5); Glucose 85 mg/dL (74-106); Osmolality,Calculated 274 (275-295); Potassium 4.1 mMol/L (3.4-5.1); Sodium 139 mMol/L (136-145); Total Protein 7.0 gm/dL (5.7-8.2); Uric Acid 4.3 mg/dL (3.1-7.8); eGFR > 60 See Note
[2025-04-04 07:03] LABS: Syphilis Nonreactive (Nonreactive)
[2025-04-04] MEDS: FAMOTIDINE INJ 10 MG/ML VIAL 2 ML 20 MG IV (08:38)
[2025-04-04] MEDS: METOCLOPRAMIDE INJ 5 MG/ML VIAL 2 ML 10 MG IVP (08:38)
[2025-04-04] MEDS: ceFAZolin/D5W 2 GM IV 2 GM/100 ML BAG IV (08:38)
--- NOTE | 2025-04-04 08:45 | ESHP_ITS ---
Documentation for date of: 04/04/25 OB Labor/Induct. HPI History of Present Illness Chief complaint: scheduled repeat with bilateral tubal ligation : 6 Para: 4 Term pregnancies: 2 pregnancies: 2 Living children: 4 History of Abortions: Spontaneous and Elective: 1 History of Vaginal deliveries: 1 History of sections: Yes (X3) History of : No ONOFRE: 04/16/25 Gestational Age (weeks): 38 Gestational Age (days): 2 History of present illness: Patient presents for scheduled repeat section with bilateral tubal ligation. No regular ctx or LOF. No vaginal bleeding. Normal movement. No fevers/chills. History of Present Dating criteria: LMP confirmed by 1st trimester US Adequate Care: Yes Abnormal ultrasound findings: - Date: 01/12/2025 - [facility] Ultrasound: - Gestational age: 32 weeks and 0 days - position: Breech - Placenta: Posterior, left lateral - Cervical length (transvaginal): 4.68 cm - No structural abnormalities detected - Normal uterus and adnexa Narrative: Hx of 3 sections (1 vertical skin, 2 pfannenstiel), 1 (2 pre-term deliveries, 2 term) Current BMI 36.6 Labs Maternal Blood Type: A Pos Labs: Negative: RPR, Hepatitis B, Rubella Titre, HIV, Chlamydia, Gonorrhea and Group Beta Strep and Unknown: Herpes Type 1 and Herpes Type 2 Review of Systems Review of Systems Narrative Review of Systems: Review of Systems Systems Reviewed: All systems reviewed, normal except as documented Constitutional Constitutional: Denies body ache(s), Denies chills, Denies fever(s) and Denies headache(s) ENT Ears, Nose, Mouth, and Throat: Denies headache(s) and Denies vertigo Cardiovascular Cardiovascular: Denies chest pain, Denies palpitations, Denies dyspnea and Denies syncope Respiratory Respiratory: Denies cough, Denies dyspnea Gastrointestinal Gastrointestinal: Denies nausea and Denies vomiting Neurologic Neurologic: Denies convulsions, Denies headache(s), Denies other visual disturbances, Denies syncope and Denies vertigo Past Medical History Family History OTHER FAMILY HX: non-contributory Surgical History SURGICAL: Positive Section (X3) Social History SOCIAL: , no tobacco/ETOH/illicit drug use Past Medical History Comments PM COMMENT: Current BMI 36.6 Meds Home Medications and Allergies Allergies Allergy/AdvReac Type Severity Reaction Status Date / Time ampicillin Allergy Severe Rash Verified 04/03/25 11:38 OB Exam Physical Exam Vital signs: Temp Pulse Resp BP Pulse Ox O2 Del Method 98.7 F 83 18 107/66 97 Room Air 04/04/25 07:00 04/04/25 07:35 04/04/25 07:00 04/04/25 07:35 04/04/25 08:34 04/04/25 07:00 Narrative: General: well developed, well nourished, no acute distress, conversant Cardiac: normal heart rate Lungs: breathing without distress Abdomen: soft, gravid, non-tender, no rebound or guarding. Both vertical and pfannenstiel scars well healed. Extremities: no pain with palpation of calves Detailed Labor and Delivery Exam Membranes: intact monitor accelerations: 15x15 monitor decelerations: None custodial variability: Moderate (11-25) OB Results Labs 04/04/25 05:40 04/04/25 05:40 Labs: Short CBC 04/04/25 Range/Units 05:40 WBC 10.7 (3.6-11.0) Thou/mm3 Hgb 11.6 L (12.0-16.0) g/dL Hct 35.0 L (36.0-46.0) % Plt Count 190 (140-440) Thou/mm3 BMP 04/04/25 05:40 Sodium 139 Potassium 4.1 Chloride 107 Carbon Dioxide 21.0 BUN 8 L Creatinine 0.6 Glucose 85 Calcium 8.9 Liver Function 04/04/25 Range/Units 05:40 Total Bilirubin 0.4 (0.3-1.2) mg/dL AST 13 (0-34) U/L ALT < 7 L (10-49) U/L Alkaline Phosphatase 151 H (46-116) U/L Albumin 4.3 (3.5-5.0) gm/dL OB Assessment & Plan Assessment and Plan (1) Maternal care for low transverse scar from previous delivery: Status: Acute Assessment and plan: Lena is a 29yo with SIUP at 38&2wk presenting for scheduled RLTCS with BTL. section was scheduled by Dr. Fountain and she was counseled in the office regarding permanent sterilization. She endorses today she is 100% sure she is done with childbearing and desires to proceed with bilateral tubal ligation. Consent form is on chart. Vitals wnl, benign exam. Reassuring assessment. PMhx/ complicated by: -hx of prior c/s x3 (one vertical skin and 2 pfannenstiel) -current BMI 36.6 Plan: -Admit to L&D -Establish IV, routine labs -NPO -Counseled/consented re: section and bilateral tubal ligation via salpingectomy. Discussed all r/b/a to include: bleeding (possible need for blood transfusion), infection (subcutaneous, deeper layers or uterine with possible need for prolonged admission or re-admission for IV antibiotics, I&D with wound packing, etc), injury to nearby structures such as bladder, bowel, ureters, blood vessels, nerves with possible need for re-operation, pain, injury to baby, hysterectomy, DVT/PE, . Answered all questions to patient and their support person's satisfaction. -IV abx ppx: ancef 2g -Nursing and anesthesia team aware of plan for section. Will proceed to OR when team is ready (2) Encounter for supervision of high risk in third trimester, antepartum: Status: Acute (3) Depression affecting in third trimester, antepartum: Status: Acute
--- NOTE | 2025-04-04 10:58 | ESOP_ITS ---
Operative Note - RN CLINICAL DOCUMENTATION SPECIALIST Procedure Date of procedure: 04/04/25 Procedure Performed: Repeat low transverse section with bilateral tubal ligation via salpingectomy Indication: Lena is a 29yo with SIUP at 38w2d presenting for scheduled repeat section with bilateral tubal ligation. She was counseled in the office regarding options for contraception and she desired permanent sterilization- consent form was signed and is on the chart. I re-confirmed with her today that she desires to proceed with bilateral tubal ligation. Pre-Op diagnosis: SIUP at 38w2d Hx of prior sections (x3) Satisfied parity desiring permanent sterilization Current BMI 36.6 Post-Op diagnosis: SIUP at 38w2d Hx of prior sections (x3) Satisfied parity desiring permanent sterilization Current BMI 36.6 Anesthesia type: Spinal Fluids: crystalloid Fluid amount (mL): 3,500 Urine output (mL): 100 Specimen: left tube, right tube and other (placenta and cord (not sent to pathology)) Estimated blood loss (ml): 800 Findings: Dense scarring in the fascial layer. Omentum adhesed to anterior abdominal wall. Bladder adhesed up onto uterus. Clear amniotic fluid. Female in cephalic presentation, apgars 9/9, weight [id number], TOB 0928 on 04/04/25. Normal appearing fallopian tubes and uterus. Complications: none Narrative: After obtaining informed consent, the patient was taken to the operating room. There was reassuring heart rate tracing prior. Spinal anesthesia was administered. A momin catheter was placed and bilateral sequential compression devices were placed. She was then prepped and draped in the normal sterile fashion in the dorsal supine position with left lateral tilt. A timeout was performed to confirm patient name, date of , procedure and indication. The team was in agreement. Spinal anesthesia was found to be adequate using an Allis clamp. Anceph 2g IV x1 were given for prophylaxis. An ellipse was made around the prior Pfannenstiel scar with the scalpel, and the eschar was removed. The pfannenstiel incision was carried down to the underlying layer of fascia. Dense scarring noted. The fascia was incised in the midine and the incision was extended laterally with the Reddy scissors. The superior and inferior aspects of the fascial incision were then grasped with the Bravo clamps, elevated and the underlying rectus muscles were dissected off bluntly and sharply. The peritoneum was entered digitally and the rectus muscles were then in the midline. The peritoneal incision was then extended superiorly and inferiorly with good visualization of the bladder (which was noted to be adhesed superiorly onto uterus). Omental adhesion was excised from the anterior abdominal wall with cautery in order to better visualize and access the uterus. An Puma retractor was placed. The lower uterine segment was scored in a transverse fashion with the scalpel (maintaining good distance above the adhesed bladder). The uterus was then entered bluntly and the incision was extended with traction with clear amniotic fluid noted. The 's head was elevated to the level of the incision. Fundal pressure was applied. The head did not immediately deliver, so the MightyVac was applied to the flexion point of the head in appropriate positioning, the vacuum was pumped up to the green zone, and with one easy pull (and no pop off), the head then delivered atraumatically in the OA position. suction was immediately released from the vacuum. The anterior shoulder, posterior shoulder and corpus were delivered without difficulty. The nose and mouth were suctioned with bulb suction and cord was clamped x2 and cut. Infant was vigorous. The was handed off to the awaiting nursing team. Cord blood obtained for typing. The placenta was then removed with uterine massage and cord traction. The uterus was exteriorized and cleared of all clot and debris. The uterine incision was repaired with 0-monocryl suture in a running locking fashion. A second layer of interrupted sutures using O-monocryl was used to closed the hysterotomy incision in an imbricating fashion. The uterine incision was inspected and hemostasis was noted. IV pitocin was given per protocol as well as TXA and good uterine tone was achieved and maintained. The Enseal Tissue Sealer device was then used according to lead pressman roto gravure printing instructions to seal and excise closely underlying the fallopian tubes, excising them completely away from the uterus at the proximal ends. This was done on the right followed by the left side, and both fallopian tubes were then sent to pathology. The uterus was returned to the abdomen after re-inspecting the repaired hysterotomy and noting hemostasis. The gutters were cleared of all clot and the pedicles were re-inspected and noted to be hemostatic. Puma retractor was removed. A piece of surgicel snow was placed over the repaired hysterotomy. The peritoneum was closed using a 3-0 vicryl suture in running fashion. The rectus muscles were inspected and small areas of oozing were cauterized. The fascia was reapproximated with 0-Vicryl suture in a running fashion. The subcutaneous tissue was then copiously irrigated. Tod's fascia was reppproximated using 3-0 vicryl suture in a running fashion in 2 layers. The skin was reapproximated with 4-0 monocryl suture in running subcuticular fashion. The incision was cleaned with a wet lap and dried with a dry lap. Jrebvvljc-quofcetiqyw-gybl bandage was applied overlying the incision and activated according to lead pressman roto gravure printing instructions. Fundus was firm at U-1cm. Sponge, lap and needle counts were correct x2. The procedure was without complications and the patient tolerated the procedure well. She was taken to recover further on Labor and Delivery, in stable condition. Surgical staff Operation Date: 04/04/25 07:45 Case Staff BROADCAST TRAFFIC COORDINATOR: Alfredo Oshea RN First Assistant: Marlyn Garrison Diagnosis Discharge Diagnosis (1) delivery delivered: Status: Acute (2) Encounter for tubal ligation: Status: Acute (3) Maternal care for low transverse scar from previous delivery: Status: Acute (4) Encounter for supervision of high risk in third trimester, antepartum: Status: Acute (5) Obesity affecting in third trimester: Status: Acute Problem List Completed Was Problem List Reviewed/Reconciled?: Yes (5) Obesity affecting in third trimester Qualifiers: Obesity type affecting : unspecified obesity Qualified Code(s): O99.213 - Obesity complicating , third trimester
[2025-04-04] MEDS: KETOROLAC INJ 30 MG/ML VIAL IVP ×2 (11:25→18:26)
[2025-04-04] MEDS: ACETAMINOPHEN IVPB 1,000 MG/100 ML VIAL 250 MG IV (11:47)
[2025-04-04] MEDS: OXYTOCIN in NS 20 units 20 UNIT/1,000 ML BAG 125 UNIT IV (16:52)
[2025-04-04 19:18] LABS: Basophils # (Auto) 0.0 Thou/mm3 (0.0-0.2); Basophils % (Auto) 0 % (0-2.5); Eosinophils # (Auto) 0.1 Thou/mm3 (0.0-0.5); Eosinophils % (Auto) 1 % (0-10); Hematocrit 29.6 % (36.0-46.0); Hemoglobin 9.6 g/dL (12.0-16.0); Immature Granulocytes Auto 0.15 Thou/mm3 (0.00-0.00); Lymphocytes # (Auto) 1.5 Thou/mm3 (1.0-4.8); Lymphocytes % (Auto) 14 % (10-50); Mean Corpuscular HGB Conc 32.4 g/dl (31.0-37.0); Mean Corpuscular Hemoglobin 25.8 pg (25.0-35.0); Mean Corpuscular Volume 80 fL (80-100); Monocytes # (Auto) 0.7 Thou/mm3 (0.0-0.8); Monocytes % (Auto) 6 % (0-12); Neutrophils # (Auto) 8.2 Thou/mm3 (1.8-7.7); Neutrophils % (Auto) 77 % (37-80); Nucleated Red Blood Cell # 0.00 Thou/mm3 (0.00-0.00); Nucleated Red Blood Cell % 0 /100 WBC (0); Platelet Count 154 Thou/mm3 (140-440); RDW Standard Deviation 42.3 fL (36.4-46.3); Red Blood Count 3.72 Miln/mm3 (4.00-5.20); White Blood Count 10.7 Thou/mm3 (3.6-11.0)
[2025-04-04] MEDS: DOCUSATE SOD 100 MG CAPSULE PO (20:47)
[2025-04-05] MEDS: KETOROLAC INJ 30 MG/ML VIAL IVP ×2 (00:33→05:54)
[2025-04-05 03:45] VITALS: BP 111/73; PULSE 91; RESP 16; TEMP 36.9; O2SAT 96
[2025-04-05] MEDS: SIMETHICONE 80 MG CHEW PO (08:18)
[2025-04-05] MEDS: DOCUSATE SOD 100 MG CAPSULE PO ×2 (08:19→22:36)
[2025-04-05] MEDS: HYDROcodone/APAP 5/325 TABLET 1 TAB PO ×2 (08:19→22:36)
--- NOTE | 2025-04-05 08:43 | PD.LDPPPRG ---
Subjective Subjective Interval history: Patient doing well overall. Pain is controlled. She is ambulating no lightheadedness/dizziness. Voiding spontaneously since momin was removed, no issues. Tolerating regular diet without nausea/vomiting. Passing gas and already had a BM. No fevers/chills, no CP/SOB. Exam Vital Signs Temp Pulse Resp BP Pulse Ox O2 Del Method 98.5 F 91 16 111/73 96 Room Air 04/05/25 03:45 04/05/25 03:45 04/05/25 03:45 04/05/25 03:45 04/05/25 03:45 04/05/25 03:45 Narrative Exam General: well developed, well nourished, no acute distress, conversant Cardiac: normal heart rate Lungs: breathing without distress Abdomen: soft, post-gravid, obese, non-tender, no rebound or guarding, pfannenstiel incision covered by dry/clean/intact prineo bandage. Incision well reapproximated. No erythema, drainage or induration. Fundus firm at u-2cm. Extremities: no pain with palpation of calves, trace edema of BLE Objective Labs 04/04/25 18:09 04/04/25 05:40 Labs: Laboratory Results - last 24 hr 04/04/25 04/04/25 05:40 18:09 WBC 10.7 RBC 3.72 L Hgb 9.6 L D Hct 29.6 L MCV 80 MCH 25.8 MCHC 32.4 RDW Std Deviation 42.3 Plt Count 154 D Neut % (Auto) 77 Lymph % (Auto) 14 [place] % (Auto) 6 Eos % (Auto) 1 Baso % (Auto) 0 Neut # (Auto) 8.2 H Lymph # (Auto) 1.5 [place] # (Auto) 0.7 Eos # (Auto) 0.1 Baso # (Auto) 0.0 Immature Gran # (Auto) 0.15 H Absolute Nucleated RBC 0.00 Immature Gran % 1 H Nucleated RBC % 0 Blood Type A Positive Antibody Screen NEGATIVE Blood Bank Wristband ID Yes Assessment & Plan Problem List (1) delivery delivered: Status: Acute Assessment and plan: Lena is a 29yo [id number] s/p uncomplicated scheduled RLTCS with BTL via salpingectomy, doing well on POD 1. Vitals wnl, benign exam. Hemodynamically stable with no evidence of infection. Appropriate change in Hgb from 11.6 to 9.6. No sx of anemia. complicated by: Hx of prior sections (x3) Satisfied parity desiring permanent sterilization Current BMI 36.6 Plan: -Continue routine /post-op care -Regular diet -motrin 800mg PO Q8hr, norco 5/325mg PO Q6hr prn pain -Encourage ambulation and use of IS -Anticipate discharge home tomorrow if meeting all milestones (2) Encounter for tubal ligation: Status: Acute (3) Maternal care for low transverse scar from previous delivery: Status: Acute (4) Encounter for supervision of high risk in third trimester, antepartum: Status: Acute (5) Obesity affecting in third trimester: Status: Acute Time Spent With Patient Time: Total time spent is greater than 50% in coordination of care (as documented) at patient's floor/unit and/or counseling patient:
[2025-04-05 09:59] VITALS: BP 108/63; PULSE 88; RESP 16; TEMP 36.2; O2SAT 97
--- NOTE | 2025-04-05 15:27 | PC.SS ---
DOG OR ANIMAL SITTER conducted bedside contact with the patient to address nursing referral indicating patient possessed history of anxiety/depression.? DOG OR ANIMAL SITTER utilized claims agent right of way to assist with discussion.? DOG OR ANIMAL SITTER introduced self and role.? Patient confirmed past history of depression/anxiety.? Patient informed DOG OR ANIMAL SITTER possession of mood disturbance for approximately 7 years.? Patient prescribed medication to address mood disturbance.? Patient confirmed participation with counseling services but therapy has ceased.? Patient described no impairment with daily functioning as a result of mood disturbance.? Patient denies current intent/plan of SI/HI.? Infant, Lucero; is the patient?s fifth child.? Other children are ages: 11, 8, 4, 2 years old. ? delivered via .? Patient plans on combo feeding the .? FOB, Justo Sam; will be involved in the rearing of the infant.? OB services provided by Dr. Perez.? Patient reports consistency with OB appointments.? Patient is aligned with WIC, SNAP and TANF.? Patient denies history of CWS involvement.? Patient denies history of alcohol/drug use.? Patient denies episodes of domestic violence.? Patient has access to appropriate supplies and equipment.? FOB will provide transportation upon discharge.? Patient describes possessing support system consisting of spouse and extended family.? DOG OR ANIMAL SITTER provided community resources to include [employer] and [employer].? No further intervention required at this time, pediatric social worker will be available to address any further concerns.? DOG OR ANIMAL SITTER updated bedside nurse.?
[2025-04-05] MEDS: IBUPROFEN TAB 400 MG TABLET 800 MG PO (15:37)
[2025-04-05] MEDS: FERROUS SULF 325 MG TABLET PO (15:37)
[2025-04-05 16:00] VITALS: BP 111/70; PULSE 84; RESP 16; TEMP 36.5; O2SAT 98
[2025-04-05 20:15] VITALS: PULSE 93; RESP 16; TEMP 37.2; O2SAT 97
[2025-04-05 23:20] VITALS: BP 105/65; PULSE 94; RESP 16; TEMP 37.2; O2SAT 98
[2025-04-06 04:00] VITALS: BP 98/66; PULSE 73; RESP 18; TEMP 36.9
[2025-04-06 08:11] VITALS: BP 116/68; PULSE 97; RESP 17; TEMP 36.8; O2SAT 98
--- NOTE | 2025-04-06 08:47 | ESDS_ITS ---
DS: Providers Provider Date of admission: 04/04/25 05:00 Primary care physician: Physician No Primary/Family Admitting Provider: Maribell Georges MD Attending Provider on Admission: Flavio Perez MD Consults: 04/04/25 10:54 Referral Routine Comment: Attending Provider on DC: Flavio Perez MD Discharging Provider: Flavio Perez MD DS: Diagnosis Discharge Diagnosis (1) Obesity affecting in third trimester: Status: Acute (2) Encounter for tubal ligation: Status: Acute (3) delivery delivered: Status: Acute Problem List Completed Was Problem List Reviewed/Reconciled?: Yes Summary/Hosp Course Brief History: Patient presents for scheduled repeat section with bilateral tubal ligation. No regular ctx or LOF. No vaginal bleeding. Normal movement. No fevers/chills. Peripartum Data Delivery Method: Low Transverse Episiotomy Description: None Procedures: Procedures Operation Date: 04/04/25 07:45 Actual Procedure Side Surgeon p w/tubal OB Maribell Georges MD Time Spent with Patient Time attestation: Total time spent providing and/or coordinating discharge services: Exam Vital Signs Temp Pulse Resp BP Pulse Ox O2 Del Method 98.4 F 73 18 98/66 98 Room Air 04/06/25 04:00 04/06/25 04:00 04/06/25 04:00 04/06/25 04:00 04/05/25 23:20 04/05/25 20:15 Discharge Plan Plan Patient Disposition: HOME (Self Care) Patient condition on transfer: Stable Prescriptions/Referrals Prescriptions/Med Rec: New hydrocodone-acetaminophen 5-325 mg Tablet 1 tab PO Q6H MDD 4 tablets PRN (Reason: Patient rated pain 7 to 8) 7 Days Qty: 12 0RF docusate sodium 100 mg Capsule 100 mg PO BID 10 Days Qty: 20 0RF ibuprofen 800 mg tablet 800 mg PO Q8HR PRN (Reason: Abdominal Pain) 10 Days Qty: 30 0RF ferrous sulfate 325 mg (65 mg iron) Tablet,Delayed Release (Dr/Ec) 325 mg PO DAILY 30 Days Qty: 30 0RF Continued Classic 28 mg iron- 800 mcg tablet 1 tab PO QDAY 90 Days Qty: 90 8RF Discontinued aspirin 81 mg tablet 81 mg PO QDAY 90 Days Qty: 90 4RF Referrals: Flavio Perez MD [Physician, CHAIRMAN OF THE BOARD] No Primary/Family,Physician [Primary Care Provider] Patient/Caregiver Discharge Instructions Discharge Activity: activity as tolerated and other Other Discharge Activity Instructions:: vaginal rest and no heavy lifting more than 10 pounds for 6 [address] while taking narcotic. keep incision clean and dry, do not submerge. Other Discharge Diet Instructions: regular Education Materials: C Section Dc, Feel Healthy After Print Language: [place]se Activity Restrictions/Additional Instructions: follow up with Dr. Perez in 1 week for incision check, call the office to schedule appointment Stand Alone Forms: Fany Award Info., Patient Portal Info Letter, DC from Surgery Discharge Order Discharge Orders: Discharge (Routine); Ordered 04/06/25 Ordered By: Flavio Perez Planned Discharge Date 04/06/25 (1) Obesity affecting in third trimester Qualifiers: Obesity type affecting : unspecified obesity Qualified Code(s): O99.213 - Obesity complicating , third trimester
--- NOTE | 2025-04-06 08:47 | PD.LDPPPRG ---
Subjective Subjective Interval history: Delivery type: Patient doing well this morning. No acute complaints. Ambulating, tolerating p.o., and voiding without difficulty. HTN/Pre-E screen negative: No CP, SOB, VALENZUELA, visual changes, RUQ pain. : Yes Lochia: diminishing Bowel: Flatus + / BM + UOP: Voiding freely Exam Vital Signs Temp Pulse Resp BP Pulse Ox O2 Del Method 98.4 F 73 18 98/66 98 Room Air 04/06/25 04:00 04/06/25 04:00 04/06/25 04:00 04/06/25 04:00 04/05/25 23:20 04/05/25 20:15 Constitutional Constitutional: no acute distress Routine HEENT Exam Head: Present normocephalic and atraumatic Eye: Present EOMI and PERRL ENT: Present mucous membranes moist Routine Neck Exam Neck: Present supple and trachea midline Routine Respiratory Exam Respiratory: Present chest non-tender, lungs clear, normal breath sounds and no resp distress Routine Cardiovascular Exam Cardiovascular: Present RRR Routine Abdominal Exam Abdominal: Present soft and normoactive bowel sounds Routine Extremities Exam Extremities: Present full ROM Routine Skin Exam Skin: Present intact, dry and warm Routine Neurological Exam Neurological: Present alert, oriented X3 and CN II-XII intact Routine Psychiatric Exam Psychiatric: Present normal affect and normal thought process Objective Labs 04/04/25 18:09 04/04/25 05:40 Assessment & Plan Problem List (1) delivery delivered: Status: Acute Assessment and plan: PPD/POD#2 1. Continue routine care 2. Transition to PO meds. 3. Encourage to ambulate/ breast-feed 4. Anticipate discharge home today. (2) Encounter for tubal ligation: Status: Acute (3) Maternal care for low transverse scar from previous delivery: Status: Acute (4) Encounter for supervision of high risk in third trimester, antepartum: Status: Acute (5) Obesity affecting in third trimester: Status: Acute Time Spent With Patient Time: Total time spent is greater than 50% in coordination of care (as documented) at patient's floor/unit and/or counseling patient:
[2025-04-06] MEDS: HYDROcodone/APAP 5/325 TABLET 1 TAB PO (09:26)
[2025-04-06] MEDS: FERROUS SULF 325 MG TABLET PO (09:27)
[2025-04-06] MEDS: DOCUSATE SOD 100 MG CAPSULE PO (09:27)
[2025-04-06] MEDS: DIPHTH,PERTUSS(ACELL),TET VAC 0.5 ML SYR- ADULT IMi (12:58)
== END 2025-04-06 14:16 | disposition home or self-care (01) | DRG 539 ==
LOC: S4SX 05:21 → S4NX 08:54
PROVIDERS: Admitting Provider Obstetrics & Gynecology; Visit Provider Obstetrics & Gynecology
PROC: 0UL70ZZ Occlusion of Bilateral Fallopian Tubes, Open Approach (ICD-10-PCS; CPT 59514; principal; 2025-04-04 07:30)
DX: O34.211 Maternal care for low transverse scar from previous cesarean delivery (principal); O99.214 Obesity complicating childbirth; Z37.0 Single live birth; Z3A.38 38 weeks gestation of pregnancy; Z30.2 Encounter for sterilization; O99.344 Other mental disorders complicating childbirth; F32.A Depression, unspecified
CPT/HCPCS: 36415; 80053; 84550; 85025; 85049; 85384; 85610; 85730; 86780; 86850; 86900; 86901; 90707; 90715; A4217; A4649; J0131; J0689; J1885; J2274; J2371; J2590; J2765; J3010; J3490; P9045; A9270; J2270

== ENCOUNTER 2025-04-11 08:49 | Outpatient (AMB) | payer MEDICAID, SELFPAY ==
[2025-04-11 09:00] VITALS: BP 127/87; PULSE 86; RESP 16; TEMP 36.1; O2SAT 97; BMI 34.9
--- NOTE | 2025-04-11 09:00 | AMB.OBPP ---
Vital Signs 04/11/25 09:00 Height 1.55 m Height Method Stated Weight 84.085 kg Weight Measurement Method Standing Scale BMI 34.9 BP 127/87 H Blood Pressure Source Automatic Cuff Blood Pressure Location Left Upper Arm Position Sitting Respiration 16 Pulse 86 Pulse Source Monitor Temp 97 F Temp Source Oral Pulse Oximetry (%) 97 Oxygen Delivery Method Room Air Allergies/Home Meds Allergies & Medications Allergies ampicillin Allergy (Severe, Verified 04/11/25 09:01) Rash Medication Reconciliation vits no.126-ferrous fum 28 mg iron-folic acid 800 mcg tablet (Classic ) 1 tab PO QDAY 90 days #90 tabs 01/22/25 [Rx Confirmed 04/11/25] docusate sodium 100 mg capsule 100 mg PO BID 10 days #20 caps 04/04/25 [Rx Confirmed 04/11/25] ibuprofen 800 mg tablet 800 mg PO Q8HR PRN Abdominal Pain 10 days #30 tabs 04/04/25 [Rx Confirmed 04/11/25] ferrous sulfate 325 mg (65 mg iron) tablet,delayed release 325 mg PO DAILY 30 days #30 tabs 04/05/25 [Rx Confirmed 04/11/25] Intake Visit Data Collection New Patient or Established: Established Patient (seen at [facility] within 3 years) Reason for Visit:: C SECTION/ Seen by Clinical Staff ONLY (RN/MA): No Outside Repairer Special Required: Yes Outside Repairer Special's name/title: ESTRELLAJARON GALLARDO Do You Feel Safe at Home: Yes Authorities Contacted: N/A PCP or OBGYN visit in last 3 months: Yes Hx Now: No Are you currently on any form of Control: No Pain Present Currently: Yes Pain Location: Abdomen (LOWER ABDOMEN) Pain Scale Used: Rodríguez-Starkey/Numerical Pain scale:: 0 Smoking Status Smoking Status: Never smoker Immunizations Flu Vaccine in the Last 12 Months: Yes Flu Vaccine Exclusion Criteria: Already Received [employer]: Past Medical History Past Medical History: No Hx Neurological Disorders, No Hx Cardiac Disorders, No Hx Cancer, Yes Hx Blood Disorders, Yes Hx Anemia, No Hx Gastrointestinal Disorders, No Hx Renal Disease, No Hx Diabetes Mellitus Type 1 and No Hx Diabetes Mellitus Type 2 Questionnaires Covid-19 Vaccine Questionnaire Has patient been vacinated for Covid-19 Have you been vacinated for Covid-19: Yes Social History Living Situation History Lives With: Family Housing: Apartment Tobacco History Smoking Status: Never smoker Second Hand Smoke Exposure: No Alcohol History Alcohol Intake: Never Alcohol Intake Frequency: holidays/special occasions only Domestic Abuse History Do You Feel Safe at Home: Yes EPDS - PP Depression Screening [place] Pospartum Depression Screen I have been able to laugh and see the funny side of things: (1) Not quite so much now I have looked forward with enjoyment to things: (0) As much as I ever did I have blamed myself unnecessarily when things went wrong: (0) No, never I have been anxious or worried for no good reason: (1) Hardly ever I have felt scared or panicky for no very good reason: (0) No, not at all Things have been getting on top of me: (1) No, most of the time I have coped quite well I have been so unhappy that I have had difficulty sleeping: (0) No, not at all I have felt sad or miserable: (0) No, not at all I have been so unhappy that I have been crying: (0) No, never The thought of harming myself has occurred to me: (0) Never EPDS completed yes HPI Interval History: Lena Ridley presents with pain following her delivery performed on April 04, 2025. She describes the pain as being located on the inside. The patient is currently and reports that her bleeding is good. She indicates that the baby is doing well with everything. Exam Narrative Physical exam: Abdominal: incision site examined with tape removed. Skin has closed well at the surgical site. Palpable knot noted at stitch site. Office Procedures [facility] LOC & Office Proc's Nursing/Assessment Patient Status: Established Patient OB Clinic Nursing Assessment: Medication Reconciliation, Update PMH in EMR and Vital Signs OB Clinic Coordination of Care: Complex Care and Chronic Disease 1-5, Consent,records obtained, informed consent, Education Simp Pt/Fam, 1 Ins Authorization, Lab and Imaging orders, Results/Orders obtained and Staff clarify orders Established Patient Charge Established Patient Point Assignment: 120 Established Patient Point Charge: EP Level 4 (120-155) Assessment & Plan Diagnosis / Problem List (1) Encounter for surgical aftercare following surgery on the genitourinary system: Status: Acute Plan Post- section pain: - Patient reports pain following section performed on April 04, 2025. - Physical examination reveals palpable suture knot causing discomfort. - Pain related to normal post-operative healing with expected temporary discomfort from internal sutures. Plan: - Continue wearing abdominal support belt. - Suture knot discomfort expected to resolve over next 7 days. - No specific interventions required at this time. Post- section wound healing: - Surgical tape removed during examination. - Incision site demonstrates excellent healing with skin already closed and good appearance. - No signs of infection or dehiscence noted. Plan: - No specific wound care interventions required. - Continue current management. Routine follow-up: - Patient is with good bleeding pattern reported. - Baby is doing well. - Patient received care at this practice throughout . Plan: - Schedule follow-up appointment in 1.5 months (at 2 months ) for comprehensive evaluation.
== END 2025-04-11 09:10 | disposition home or self-care (01) ==
LOC: HODSOBC 08:49
PROVIDERS: Supervising Provider Obstetrics & Gynecology; Visit Provider Obstetrics & Gynecology
DX: Z39.2 Encounter for routine postpartum follow-up (principal); Z39.1 Encounter for care and examination of lactating mother
CPT/HCPCS: 99214; G0463